=== PATIENT | female | born 1975 | race African-American/Black ===

== ENCOUNTER 2018-11-05 00:57 | Inpatient (IN) | payer MEDICAID ==
[~2018-11-05] VITALS: Ht 149.9 cm; Wt 108.4 kg
[2018-11-05] MEDS ORDERED: KETOROLAC 30MG/ML VIAL IV STA (08:41)
[2018-11-05] MEDS ORDERED: SODIUM CHLORIDE 0.9% 1,000 ML IV ONE (08:41)
[2018-11-05 08:55] LABS: BASOPHILS % 0.4 % (0.0-2.0); EOSINOPHILS % 2.3 % (0.0-5.0); HEMATOCRIT. 40.5 % (36.0-48.0); HEMOGLOBIN. 13.1 g/dL (12.0-16.0); LYMPHOCYTES % 22.4 % (20.0-50.0); MEAN CORPUSCULAR HEMOGLOBIN 26.7 pg (28.0-32.0); MEAN CORPUSCULAR VOLUME 82.6 fL (81.0-99.0); MEAN PLATELET VOLUME 9.1 fl (7.4-10.4); MONOCYTES % 6.6 % (2.0-8.0); NEUTROPHILS % 68.3 % (40.0-76.0); PLATELET 257 x1000/uL (130-400); RED CELL DISTRIBUTION WIDTH 17.9 % (11.6-14.6)
[2018-11-05 08:58] LABS: CHLORIDE 107 mEq/L (98-107)
[2018-11-05 09:00] LABS: INR 0.9; PROTHROMBIN TIME 9.5 sec (9.1-11.1)
[2018-11-05 09:08] LABS: HCG SCREEN NEGATIVE
[2018-11-05 09:49] LABS: CLARITY URINE CLOUDY (CLEAR); COLOR URINE YELLOW (YELLOW); KETONES URINE NEGATIVE (NEGATIVE); LEUKOCYTE ESTERASE URINE 1+ (NEGATIVE); NITRITE URINE POSITIVE (NEGATIVE); OCCULT BLOOD URINE NEGATIVE (NEGATIVE); PH URINE 7.5 (4.5-8.0); PROTEIN URINE NEGATIVE (NEGATIVE); SPECIFIC GRAVITY URINE 1.015 (1.005-1.030); UROBILINOGEN URINE 0.2 E.U./dL (0.2-1.0)
[2018-11-05 12:30] LABS: *BARBITURATES SCREEN URINE NEGATIVE (NEGATIVE); *BENZODIAZEPINES SCREEN URINE NEGATIVE (NEGATIVE); *COCAINE SCREEN URINE NEGATIVE (NEGATIVE)
[2018-11-05 12:31] LABS: CANNABINOID URINE SCREEN NEGATIVE (NEGATIVE); METHADONE URINE SCREEN NEGATIVE (NEGATIVE); OPIATES URINE SCREEN NEGATIVE (NEGATIVE); PHENCYCLIDINE URINE SCREEN NEGATIVE (NEGATIVE)
[2018-11-05 12:39] LABS: *AMPHETAMINES SCREEN URINE PRESUMTIVE POSITIVE (NEGATIVE)
[2018-11-05] MEDS ORDERED: PIPERACILLIN/TAZ 3.375G PREMIX 50 ML IV ONE (12:45)
[2018-11-05] MEDS ORDERED: VANCOMYCIN 1 G PREMIX 200 ML IV ONE (12:45)
[2018-11-05] MEDS ORDERED: MORPHINE SULFATE 4 MG/ML CPJ (NOT FOR IM USE) IV STA (12:47)
[2018-11-05] MEDS ORDERED: IBUPROFEN 600MG TABLET PO PRN (13:00)
[2018-11-05] MEDS ORDERED: MAGNESIUM/ALUMINUM HYDROXIDE/SIMETHICONE 30ML UDC PO PRN (14:45)
[2018-11-05] MEDS ORDERED: NA PHOS,M-B/NA PHOS,DI-BA ENEMA 118ML PR PRN (14:45)
[2018-11-05] MEDS ORDERED: ONDANSETRON HCL 4MG/2ML INJ IV PRN (14:45)
[2018-11-05] MEDS ORDERED: CLONIDINE 0.1MG TABLET PO PRN (14:45)
[2018-11-05] MEDS ORDERED: DOCUSATE SODIUM 100MG CAPSULE PO PRN (14:45)
[2018-11-05] MEDS ORDERED: ACETAMINOPHEN 325MG TABLET PO PRN (14:45)
[2018-11-05 17:45] VITALS: BP 134/52
[2018-11-05 18:02] VITALS: BP 134/52
[2018-11-05] MEDS: AMLODIPINE 10MG TABLET PO SCH (18:21)
[2018-11-05] MEDS ORDERED: VANCOMYCIN 1 G PREMIX 200 ML IV SCH (19:00)
[2018-11-05 20:00] VITALS: BP 128/57
[2018-11-05] MEDS: PIPERACILLIN/TAZ 3.375G PREMIX 50 ML IV SCH (20:04)
[2018-11-05] MEDS: SODIUM CHLORIDE 0.9% 1,000 ML IV SCH (20:05)
[2018-11-05] MEDS: ENOXAPARIN 40MG/0.4ML SYR SUBCUT SCH (20:10)
[2018-11-06] VITALS: BP 133/70
[2018-11-06] MEDS: HYDROCODONE/ACETAMINOPHEN 5/325MG TABLET PO PRN ×2 (00:54→09:03)
[2018-11-06] MEDS: PIPERACILLIN/TAZ 3.375G PREMIX 50 ML IV SCH ×4 (01:00→23:20)
[2018-11-06] MEDS: VANCOMYCIN 750 MG PREMIX 150 ML IV SCH ×3 (02:14→18:28)
[2018-11-06 04:00] VITALS: BP 122/61
[2018-11-06 06:56] LABS: BASOPHILS % 1.4 % (0.0-2.0); EOSINOPHILS % 1.6 % (0.0-5.0); HEMATOCRIT. 35.3 % (36.0-48.0); LYMPHOCYTES % 17.8 % (20.0-50.0); MEAN CORPUSCULAR HEMOGLOBIN 26.4 pg (28.0-32.0); MEAN PLATELET VOLUME 9.7 fl (7.4-10.4); MONOCYTES % 6.4 % (2.0-8.0); NEUTROPHILS % 72.8 % (40.0-76.0); PLATELET 171 x1000/uL (130-400); RED CELL DISTRIBUTION WIDTH 17.3 % (11.6-14.6)
[2018-11-06 07:02] LABS: CHLORIDE 109 mEq/L (98-107)
[2018-11-06 07:12] LABS: HEMOGLOBIN. 11.1 g/dL (12.0-16.0)
[2018-11-06 08:00] VITALS: BP 118/80
[2018-11-06] MEDS: AMLODIPINE 10MG TABLET PO SCH (09:00)
[2018-11-06] MEDS: ENOXAPARIN 40MG/0.4ML SYR SUBCUT SCH (09:02)
[2018-11-06 11:57] VITALS: BP 106/42
[2018-11-06] MEDS: HYDROCODONE/ACETAMINOPHEN 10/325MG TABLET PO PRN ×2 (12:27→21:03)
[2018-11-06 15:46] VITALS: BP 106/49
[2018-11-06] MEDS: SODIUM CHLORIDE 0.9% 1,000 ML IV SCH (17:12)
[2018-11-06 20:00] VITALS: BP 119/47
[2018-11-06] MEDS: ENOXAPARIN 30MG/0.3ML SYR SUBCUT SCH (21:03)
[2018-11-07] VITALS: BP 109/55
[2018-11-07] MEDS: VANCOMYCIN 750 MG PREMIX 150 ML IV SCH ×2 (03:09→10:41)
[2018-11-07] MEDS: PIPERACILLIN/TAZ 3.375G PREMIX 50 ML IV SCH ×2 (03:09→09:20)
[2018-11-07 04:00] VITALS: BP 150/70
[2018-11-07] MEDS: SODIUM CHLORIDE 0.9% 1,000 ML IV SCH (05:51)
[2018-11-07 08:00] VITALS: BP 121/55
[2018-11-07] MEDS: HYDROCODONE/ACETAMINOPHEN 10/325MG TABLET PO PRN (08:55)
[2018-11-07] MEDS: AMLODIPINE 10MG TABLET PO SCH (08:56)
[2018-11-07] MEDS: ENOXAPARIN 30MG/0.3ML SYR SUBCUT SCH (08:56)
[2018-11-07 10:20] LABS: CHLORIDE 107 mEq/L (98-107)
[2018-11-07 12:00] VITALS: BP 105/57
[2018-11-07 12:12] VITALS: BP 121/55
[2018-11-07] MEDS ORDERED: VANCOMYCIN 1 G PREMIX 200 ML IV SCH (21:00)
== END 2018-11-07 15:30 | disposition home or self-care (01) | DRG 813 ==
LOC: ER 00:57 → ENRESERV 14:47 → 6EST 17:07
PROVIDERS: ADMIT Hospitalist; ATTEND Hospitalist
DX: T81.31XA Disruption of external operation (surgical) wound, not elsewhere classified, initial encounter (principal); F20.9 Schizophrenia, unspecified; F12.90 Cannabis use, unspecified, uncomplicated; N39.0 Urinary tract infection, site not specified; F31.9 Bipolar disorder, unspecified; F17.200 Nicotine dependence, unspecified, uncomplicated; Y83.8 Other surgical procedures as the cause of abnormal reaction of the patient, or of later complication, without mention of misadventure at the time of the procedure; Y92.89 Other specified places as the place of occurrence of the external cause; Z98.891 History of uterine scar from previous surgery
CPT/HCPCS: 36415; 71045; 80048; 80202; 80305; 84703; 87070; 87077; 87186; 93005; 93970; 96365; 96375; 99285; J1650; J1885; J2270; J2543; J3370; J7030; A4315

== ENCOUNTER 2021-09-24 13:46 | Inpatient (IN) | payer MEDICAID ==
[~2021-09-24] VITALS: Ht 149.9 cm; Wt 114.8 kg
[2021-09-24] MEDS ORDERED: CEFTRIAXONE 1 G PREMIX 50 ML IV ONE (14:45)
[2021-09-24] MEDS ORDERED: LORAZEPAM 2MG/ML CPJ IM ONE (15:45)
[2021-09-24 15:53] LABS: HEMATOCRIT. 49.8 % (36.0-48.0); HEMOGLOBIN. 15.6 g/dL (12.0-16.0); MEAN CORPUSCULAR HEMOGLOBIN 25.3 pg (28.0-32.0); MEAN CORPUSCULAR VOLUME 80.9 fL (81.0-99.0); MEAN PLATELET VOLUME 9.2 fl (7.4-10.4); PLATELET 309 x1000/uL (130-400); RED BLOOD CELL COUNT 6.16 mill/uL (4.2-5.4); RED CELL DISTRIBUTION WIDTH 19.3 % (11.6-14.6)
[2021-09-24 15:57] LABS: CHLORIDE 107 mEq/L (98-107)
[2021-09-24 16:01] LABS: ETHANOL BLOOD < 10 mg/dL
[2021-09-24 16:51] LABS: PLATELET ESTIMATE NORMAL
[2021-09-24] MEDS ORDERED: SODIUM CHLORIDE 0.9% 1,000 ML IV ONE (18:00)
[2021-09-24] MEDS ORDERED: DEXTROSE 50% WATER 50ML SYRINGE IV ONE (18:15)
[2021-09-24] MEDS ORDERED: SODIUM CHLORIDE 0.9% 1000ML BAG (SEPSIS BOLUS) IV ONE (18:15)
[2021-09-24] MEDS ORDERED: VANCOMYCIN 1G PREMIX 200 ML IV ONE (18:45)
[2021-09-24] MEDS ORDERED: PIPERACILLIN/TAZ 3.375G PREMIX 50 ML IV ONE (18:45)
[2021-09-24 19:07] LABS: CLARITY URINE TURBID (CLEAR); COLOR URINE YELLOW (YELLOW); KETONES URINE NEGATIVE (NEGATIVE); LEUKOCYTE ESTERASE URINE 3+ (NEGATIVE); NITRITE URINE NEGATIVE (NEGATIVE); OCCULT BLOOD URINE 3+ (NEGATIVE); PH URINE 6.5 (4.5-8.0); PROTEIN URINE 3+ (NEGATIVE); SPECIFIC GRAVITY URINE 1.014 (1.005-1.030); UROBILINOGEN URINE 0.2 E.U./dL (0.2-1.0)
[2021-09-24] MEDS ORDERED: DEXT 5%/0.9% NACL 1,000 ML IV ONE (19:15)
[2021-09-24 19:21] LABS: *BARBITURATES SCREEN URINE NEGATIVE (NEGATIVE); *BENZODIAZEPINES SCREEN URINE NEGATIVE (NEGATIVE)
[2021-09-24 19:22] LABS: CANNABINOID URINE SCREEN NEGATIVE (NEGATIVE); METHADONE URINE SCREEN NEGATIVE (NEGATIVE); OPIATES URINE SCREEN NEGATIVE (NEGATIVE); PHENCYCLIDINE URINE SCREEN NEGATIVE (NEGATIVE)
[2021-09-24 19:26] LABS: *AMPHETAMINES SCREEN URINE PRESUMTIVE POSITIVE (NEGATIVE); *COCAINE SCREEN URINE PRESUMTIVE POSITIVE (NEGATIVE)
[2021-09-24] MEDS ORDERED: [UNRECOGNIZED DRUG - REMARK] XX SCH (19:30)
[2021-09-24] MEDS ORDERED: WATER IV SCH ×2 (20:00→21:30)
[2021-09-24] MEDS ORDERED: DEXT 5% IV SCH ×2 (20:00→21:30)
[2021-09-24] MEDS ORDERED: ACETYLCYSTEINE IV SCH ×2 (20:00→21:30)
[2021-09-24] MEDS: BLOOD SUGAR DIAGNOSTIC STRIP TEST SCH ×3 (20:30→22:55)
[2021-09-24] MEDS: DEXTROSE 50% WATER 50ML SYRINGE IV PRN (21:01)
[2021-09-24 21:48] LABS: INR 1.1; PROTHROMBIN TIME 12.1 sec (9.6-11.0)
[2021-09-24 22:28] LABS: CREATINE KINASE 169560 IU/L (26-192)
[2021-09-24] MEDS ORDERED: SODIUM POLYSTYRENE SULFONATE 15 G/60 ML BOT PO NR (22:30)
[2021-09-25] MEDS: BLOOD SUGAR DIAGNOSTIC STRIP TEST SCH ×25 (00:10→23:30)
[2021-09-25] MEDS ORDERED: ACETYLCYSTEINE IV SCH (01:00)
[2021-09-25] MEDS ORDERED: DEXTROSE 5% IV SCH (01:00)
[2021-09-25] MEDS ORDERED: WATER IV SCH (01:00)
[2021-09-25] MEDS: DEXTROSE 50% WATER 50ML SYRINGE IV PRN ×5 (04:15→15:35)
[2021-09-25] MEDS: PIPERACILLIN/TAZ 3.375G PREMIX 50 ML IV SCH ×2 (05:56→14:05)
[2021-09-25 09:18] LABS: CHLORIDE 103 mEq/L (98-107)
[2021-09-25] MEDS ORDERED: SODIUM BICARBONATE 5MEQ SYR 150 MEQ in DEXTROSE 5% WATER 1,000 ML IV ONE (12:00)
[2021-09-25] MEDS ORDERED: SODIUM POLYSTYRENE SULFONATE 15 G/60 ML BOT PO NR (12:08)
[2021-09-25 12:14] LABS: BG BASE EXCESS -9.9 mmol/L (-2.0-2.0); BG CARBOXYHEMOGLOBIN 0.4 % (0.5-1.5); BG DEOXYHEMOGLOBIN 3.2 % (0.0-5.0); BG HCO3 ACT 15.4 mmol/L (22.0-26.0); BG METHEMOGLOBIN 0.1 % (0.0-1.5); BG OXYGEN SATURATION 96.8 % (92.0-98.5); BG OXYHEMOGLOBIN 96.3 % (94.0-97.0); BG PCO2 32.6 mmHg (35.0-45.0); BG PH 7.293 (7.350-7.450); BG PO2 102.5 mmHg (75.0-100.0); BG SAMPLE SITE LEFT RADIAL; BG TOTAL HEMOGLOBIN 13.6 g/dL (12.0-18.0); BG VENT MODE ROOM AIR
[2021-09-25] MEDS: SODIUM BICARBONATE 150 MEQ in DEXTROSE 5% WATER 1,000 ML IV SCH (13:08)
[2021-09-25] MEDS ORDERED: AMLODIPINE 5MG TABLET PO SCH (14:15)
[2021-09-25] MEDS: CLONIDINE 0.1MG TABLET PO PRN ×2 (15:00→18:55)
[2021-09-25 16:12] LABS: INR 1.6; PROTHROMBIN TIME 16.5 sec (9.6-11.0)
[2021-09-25] MEDS ORDERED: CALCIUM GLUCONATE 100MG/ML 10ML VIAL IV NR (17:45)
[2021-09-25] MEDS ORDERED: NACL IV ONE (20:00)
[2021-09-25] MEDS ORDERED: DEXT IV ONE (20:00)
[2021-09-25] MEDS ORDERED: ACETYLCYSTEINE IV ONE (20:00)
[2021-09-25] MEDS: PIPERACILLIN/TAZOBACTAM 3.375G in DEXT 5% WATER 50ML IV SCH (22:00)
[2021-09-25] MEDS ORDERED: LABETALOL HCL VIAL 20 MG/4 ML VIAL IV PRN (23:45)
[2021-09-26] MEDS: SODIUM BICARBONATE 150 MEQ in DEXTROSE 5% WATER 1,000 ML IV SCH ×2
[2021-09-26] MEDS: BLOOD SUGAR DIAGNOSTIC STRIP TEST SCH ×22 (00:32→22:43)
[2021-09-26] MEDS: DEXTROSE 50% WATER 50ML SYRINGE IV PRN ×6 (00:33→22:42)
[2021-09-26 05:20] LABS: HEMATOCRIT. 41.2 % (36.0-48.0); HEMOGLOBIN. 13.6 g/dL (12.0-16.0); MEAN CORPUSCULAR HEMOGLOBIN 26.3 pg (28.0-32.0); MEAN CORPUSCULAR VOLUME 80.2 fL (81.0-99.0); MEAN PLATELET VOLUME 9.4 fl (7.4-10.4); PLATELET 195 x1000/uL (130-400); RED BLOOD CELL COUNT 5.15 mill/uL (4.2-5.4); RED CELL DISTRIBUTION WIDTH 19.3 % (11.6-14.6)
[2021-09-26 05:30] LABS: CHLORIDE 97 mEq/L (98-107)
[2021-09-26 05:57] LABS: HEPATITIS B SURFACE ANTIGEN NEGATIVE
[2021-09-26] MEDS: PIPERACILLIN/TAZOBACTAM 3.375G in DEXT 5% WATER 50ML IV SCH ×3 (06:39→22:00)
[2021-09-26] MEDS ORDERED: SODIUM POLYSTYRENE SULFONATE 15 G/60 ML BOT PO NR (09:30)
[2021-09-26] MEDS: SODIUM BICARBONATE 150 MEQ in DEXT 10% WATER 1,000 ML IV SCH ×2 (09:45→21:15)
[2021-09-26 10:10] LABS: INR 1.3; PROTHROMBIN TIME 13.5 sec (9.6-11.0)
[2021-09-26] MEDS: PANTOPRAZOLE SODIUM 40 MG/VIAL IV SCH (12:00)
[2021-09-26] MEDS: DEXT IV SCH (17:08)
[2021-09-26] MEDS: NACL IV SCH (17:08)
[2021-09-26] MEDS: ACETYLCYSTEINE IV SCH (17:08)
[2021-09-26] MEDS: LACTULOSE 20G/30ML UDC PO SCH (22:00)
[2021-09-27] MEDS: BLOOD SUGAR DIAGNOSTIC STRIP TEST SCH ×23 (00:03→23:15)
[2021-09-27] MEDS ORDERED: SODIUM BICARBONATE 8.4% 1 MEQ/ML 50ML SYR IV NR (02:00)
[2021-09-27 04:44] LABS: CREATINE KINASE 152125 IU/L (26-192)
[2021-09-27] MEDS: DEXTROSE 50% WATER 50ML SYRINGE IV PRN ×4 (04:45→23:22)
[2021-09-27 06:10] LABS: BASOPHILS % 0.1 % (0.0-2.0); HEMATOCRIT. 39.5 % (36.0-48.0); MEAN CORPUSCULAR HEMOGLOBIN 26.1 pg (28.0-32.0); MEAN CORPUSCULAR VOLUME 78.9 fL (81.0-99.0); MEAN PLATELET VOLUME 9.6 fl (7.4-10.4); MONOCYTES % 9.2 % (2.0-8.0); NEUTROPHILS % 81.7 % (40.0-76.0); PLATELET 190 x1000/uL (130-400); RED CELL DISTRIBUTION WIDTH 19.9 % (11.6-14.6)
[2021-09-27] MEDS: PIPERACILLIN/TAZOBACTAM 3.375G in DEXT 5% WATER 50ML IV SCH ×2 (06:18→14:18)
[2021-09-27 06:31] LABS: INR 1.2; PARTIAL THROMBOPLASTIN TIME 31.9 sec (23.4-31.0); PROTHROMBIN TIME 12.9 sec (9.6-11.0)
[2021-09-27 06:34] LABS: CHLORIDE 88 mEq/L (98-107)
[2021-09-27 06:36] LABS: PLATELET ESTIMATE NORMAL
[2021-09-27] MEDS: LACTULOSE 20G/30ML UDC PO SCH ×3 (06:50→23:15)
[2021-09-27 07:19] LABS: PHOSPHORUS 8.5 mg/dL (2.5-4.9)
[2021-09-27 08:06] LABS: BG BASE EXCESS 0.1 mmol/L (-2.0-2.0); BG CARBOXYHEMOGLOBIN 0.4 % (0.5-1.5); BG DEOXYHEMOGLOBIN 3.7 % (0.0-5.0); BG FRACTION INSPIRED OXYGEN 21; BG HCO3 ACT 24.1 mmol/L (22.0-26.0); BG METHEMOGLOBIN 0.3 % (0.0-1.5); BG OXYGEN SATURATION 96.3 % (92.0-98.5); BG OXYHEMOGLOBIN 95.6 % (94.0-97.0); BG PH 7.432 (7.350-7.450); BG PO2 89.9 mmHg (75.0-100.0); BG SAMPLE SITE RIGHT RADIAL; BG TOTAL HEMOGLOBIN 12.3 g/dL (12.0-18.0); BG VENT MODE ROOM AIR
[2021-09-27] MEDS: DEXT IV SCH (08:38)
[2021-09-27] MEDS: NACL IV SCH (08:38)
[2021-09-27] MEDS: ACETYLCYSTEINE IV SCH (08:38)
[2021-09-27] MEDS ORDERED: AMLODIPINE 10MG TABLET PO SCH (09:00)
[2021-09-27] MEDS: SODIUM BICARBONATE 150 MEQ in DEXT 10% WATER 1,000 ML IV SCH ×2 (09:36→23:15)
[2021-09-27] MEDS: AMLODIPINE 5MG TABLET PO SCH (09:36)
[2021-09-27] MEDS ORDERED: LIDOCAINE HCL 1% 20ML VIAL (Pyxis) INJ ONE (10:28)
[2021-09-27] MEDS: PANTOPRAZOLE SODIUM 40 MG/VIAL IV SCH (12:34)
[2021-09-28] MEDS: BLOOD SUGAR DIAGNOSTIC STRIP TEST SCH ×24 (01:22→23:21)
[2021-09-28] MEDS: LACTULOSE 20G/30ML UDC PO SCH ×3 (01:25→15:11)
[2021-09-28] MEDS: ACETYLCYSTEINE IV SCH ×3 (01:59→23:49)
[2021-09-28] MEDS: NACL IV SCH ×3 (01:59→23:49)
[2021-09-28] MEDS: DEXT IV SCH ×3 (01:59→23:49)
[2021-09-28] MEDS: DEXTROSE 50% WATER 50ML SYRINGE IV PRN ×3 (02:39→11:25)
[2021-09-28 08:23] LABS: BG BASE EXCESS 4.3 mmol/L (-2.0-2.0); BG CARBOXYHEMOGLOBIN 0.2 % (0.5-1.5); BG DEOXYHEMOGLOBIN 3.3 % (0.0-5.0); BG HCO3 ACT 28.6 mmol/L (22.0-26.0); BG METHEMOGLOBIN 0.3 % (0.0-1.5); BG OXYGEN SATURATION 96.7 % (92.0-98.5); BG OXYHEMOGLOBIN 96.2 % (94.0-97.0); BG PCO2 41.6 mmHg (35.0-45.0); BG PH 7.455 (7.350-7.450); BG PO2 94.9 mmHg (75.0-100.0); BG SAMPLE SITE RIGHT RADIAL; BG TOTAL HEMOGLOBIN 11.3 g/dL (12.0-18.0); BG VENT MODE NASAL CANNULA
[2021-09-28 09:48] LABS: HEMATOCRIT. 33.7 % (36.0-48.0); HEMOGLOBIN. 11.1 g/dL (12.0-16.0); MEAN CORPUSCULAR VOLUME 78.7 fL (81.0-99.0); MEAN PLATELET VOLUME 9.2 fl (7.4-10.4); PLATELET 234 x1000/uL (130-400); RED BLOOD CELL COUNT 4.28 mill/uL (4.2-5.4); RED CELL DISTRIBUTION WIDTH 19.2 % (11.6-14.6)
[2021-09-28 09:57] LABS: CHLORIDE 85 mEq/L (98-107)
[2021-09-28] MEDS: PIPERACILLIN/TAZOBACTAM 3.375G in DEXT 5% WATER 50ML IV SCH (10:00)
[2021-09-28 10:06] LABS: INR 1.2; PROTHROMBIN TIME 12.4 sec (9.6-11.0)
[2021-09-28 10:29] LABS: PHOSPHORUS 8.8 mg/dL (2.5-4.9)
[2021-09-28] MEDS: SODIUM CHLORIDE IV SCH (10:50)
[2021-09-28] MEDS: WATER IV SCH (10:50)
[2021-09-28] MEDS: DEXT 10% IV SCH (10:50)
[2021-09-28 11:01] LABS: PLATELET ESTIMATE NORMAL
[2021-09-28] MEDS: AMLODIPINE 5MG TABLET PO SCH (11:05)
[2021-09-28] MEDS: PANTOPRAZOLE SODIUM 40 MG/VIAL IV SCH (13:05)
[2021-09-28] MEDS ORDERED: ONDANSETRON HCL 4MG/2ML INJ IV PRN (15:30)
[2021-09-28 21:12] LABS: CREATINE KINASE 58550 IU/L (26-192)
[2021-09-29] VITALS (11 sets, daily range): BP systolic 136–171; BP diastolic 58–113
[2021-09-29] MEDS: BLOOD SUGAR DIAGNOSTIC STRIP TEST SCH ×9 (00:50→17:00)
[2021-09-29] MEDS ORDERED: BLOOD SUGAR DIAGNOSTIC STRIP TEST SCH ×2 (01:00→04:00)
[2021-09-29 01:09] LABS: INR 1.2; PROTHROMBIN TIME 12.6 sec (9.6-11.0)
[2021-09-29 01:21] LABS: CHLORIDE 88 mEq/L (98-107)
[2021-09-29] MEDS: PIPERACILLIN/TAZOBACTAM 3.375G in DEXT 5% WATER 50ML IV SCH ×3 (01:38→09:37)
[2021-09-29] MEDS: ONDANSETRON HCL 4MG/2ML INJ IV PRN ×2 (01:38→10:28)
[2021-09-29] MEDS: SODIUM CHLORIDE IV SCH ×3 (02:03→15:58)
[2021-09-29] MEDS: WATER IV SCH ×3 (02:03→15:58)
[2021-09-29] MEDS: DEXT 10% IV SCH ×3 (02:03→15:58)
[2021-09-29 03:03] LABS: CREATINE KINASE 77475 IU/L (26-192)
[2021-09-29] MEDS: LACTULOSE 20G/30ML UDC PO SCH ×3 (05:00→21:12)
[2021-09-29 05:26] LABS: CHLORIDE 89 mEq/L (98-107)
[2021-09-29 06:11] LABS: BASOPHILS % 0.1 % (0.0-2.0); EOSINOPHILS % 0.5 % (0.0-5.0); HEMATOCRIT. 33.3 % (36.0-48.0); HEMOGLOBIN. 11.2 g/dL (12.0-16.0); LYMPHOCYTES % 9.1 % (20.0-50.0); MEAN CORPUSCULAR HEMOGLOBIN 26.7 pg (28.0-32.0); MEAN CORPUSCULAR VOLUME 79.1 fL (81.0-99.0); MEAN PLATELET VOLUME 9.8 fl (7.4-10.4); MONOCYTES % 11.1 % (2.0-8.0); NEUTROPHILS % 79.2 % (40.0-76.0); PLATELET 195 x1000/uL (130-400); RED BLOOD CELL COUNT 4.21 mill/uL (4.2-5.4)
[2021-09-29] MEDS: LABETALOL 5MG/ML SYR 20 MG/4 ML SYRINGE IV PRN (06:24)
[2021-09-29 07:09] LABS: PHOSPHORUS 8.8 mg/dL (2.5-4.9)
[2021-09-29] MEDS: AMLODIPINE 5MG TABLET PO SCH (09:37)
[2021-09-29] MEDS: PANTOPRAZOLE SODIUM 40 MG/VIAL IV SCH (12:22)
[2021-09-29] MEDS: RIFAXIMIN 550 MG TABLET PO SCH (20:13)
[2021-09-29] MEDS: TRAMADOL 50MG TABLET PO PRN (20:17)
[2021-09-29] MEDS: CLONIDINE 0.1MG TABLET PO PRN (20:18)
[2021-09-29] MEDS: CEFTRIAXONE 1,000 MG in DEXTROSE 5% WATER 50 ML IV SCH (20:52)
[2021-09-30] VITALS (13 sets, daily range): BP systolic 119–169; BP diastolic 63–79
[2021-09-30] MEDS: ONDANSETRON HCL 4MG/2ML INJ IV PRN (00:21)
[2021-09-30] MEDS: LABETALOL 5MG/ML SYR 20 MG/4 ML SYRINGE IV PRN (00:22)
[2021-09-30] MEDS: DEXT 10% IV SCH (02:00)
[2021-09-30] MEDS: WATER IV SCH (02:00)
[2021-09-30] MEDS: SODIUM CHLORIDE IV SCH (02:00)
[2021-09-30] MEDS: LACTULOSE 20G/30ML UDC PO SCH ×3 (05:13→21:08)
[2021-09-30] MEDS: PROCHLORPERAZINE 10MG/2ML VIAL IV PRN (05:13)
[2021-09-30] MEDS: CLONIDINE 0.1MG TABLET PO PRN (05:18)
[2021-09-30 06:42] LABS: CHLORIDE 90 mEq/L (98-107)
[2021-09-30 06:47] LABS: INR 1.1; PROTHROMBIN TIME 11.9 sec (9.6-11.0)
[2021-09-30 07:19] LABS: MEAN CORPUSCULAR HEMOGLOBIN 26.4 pg (28.0-32.0); MEAN CORPUSCULAR VOLUME 78.9 fL (81.0-99.0); MEAN PLATELET VOLUME 9.7 fl (7.4-10.4); RED BLOOD CELL COUNT 4.18 mill/uL (4.2-5.4); RED CELL DISTRIBUTION WIDTH 19.3 % (11.6-14.6)
[2021-09-30 07:29] LABS: PHOSPHORUS 8.7 mg/dL (2.5-4.9)
[2021-09-30] MEDS: BLOOD SUGAR DIAGNOSTIC STRIP TEST SCH ×3 (08:00→23:19)
[2021-09-30] MEDS: AMLODIPINE 5MG TABLET PO SCH (09:41)
[2021-09-30] MEDS: RIFAXIMIN 550 MG TABLET PO SCH ×2 (09:41→20:27)
[2021-09-30] MEDS: DEXT 5%/0.9% NACL 1,000 ML IV SCH ×2 (11:08→19:52)
[2021-09-30] MEDS: PANTOPRAZOLE SODIUM 40 MG/VIAL IV SCH (15:03)
[2021-09-30] MEDS: CEFTRIAXONE 1,000 MG in DEXTROSE 5% WATER 50 ML IV SCH (20:27)
[2021-09-30] MEDS: TRAMADOL 50MG TABLET PO PRN (21:12)
[2021-09-30] MEDS ORDERED: NALOXONE HCL 0.4MG/ML VIAL IV PRN (22:30)
[2021-10-01] VITALS (12 sets, daily range): BP systolic 115–166; BP diastolic 60–84
[2021-10-01] MEDS: BLOOD SUGAR DIAGNOSTIC STRIP TEST SCH ×9 (03:00→20:00)
[2021-10-01] MEDS: LACTULOSE 20G/30ML UDC PO SCH ×3 (05:01→21:16)
[2021-10-01] MEDS: DEXT 5%/0.9% NACL 1,000 ML IV SCH (05:19)
[2021-10-01 08:40] LABS: HEMATOCRIT. 30.6 % (36.0-48.0); HEMOGLOBIN. 9.9 g/dL (12.0-16.0); MEAN CORPUSCULAR HEMOGLOBIN 26.2 pg (28.0-32.0); MEAN PLATELET VOLUME 9.2 fl (7.4-10.4); PLATELET 195 x1000/uL (130-400); RED BLOOD CELL COUNT 3.78 mill/uL (4.2-5.4); RED CELL DISTRIBUTION WIDTH 18.5 % (11.6-14.6)
[2021-10-01 08:47] LABS: PLATELET ESTIMATE NORMAL
[2021-10-01 08:49] LABS: PLATELET 239 x1000/uL (130-400)
[2021-10-01 08:53] LABS: BG BASE EXCESS 0.8 mmol/L (-2.0-2.0); BG CARBOXYHEMOGLOBIN 0.3 % (0.5-1.5); BG DEOXYHEMOGLOBIN 2.9 % (0.0-5.0); BG FRACTION INSPIRED OXYGEN 32; BG HCO3 ACT 25.9 mmol/L (22.0-26.0); BG METHEMOGLOBIN 0.6 % (0.0-1.5); BG OXYGEN SATURATION 97.1 % (92.0-98.5); BG OXYHEMOGLOBIN 96.2 % (94.0-97.0); BG PCO2 43.8 mmHg (35.0-45.0); BG PO2 106.8 mmHg (75.0-100.0); BG SAMPLE SITE RIGHT RADIAL; BG TOTAL HEMOGLOBIN 10.1 g/dL (12.0-18.0); BG VENT MODE NASAL CANNULA
[2021-10-01] MEDS ORDERED: POTASSIUM CHLORIDE 20MEQ TABLET SR PO SCH (09:45)
[2021-10-01] MEDS: PROCHLORPERAZINE 10MG/2ML VIAL IV PRN (10:21)
[2021-10-01] MEDS: RIFAXIMIN 550 MG TABLET PO SCH ×2 (10:21→21:15)
[2021-10-01] MEDS: AMLODIPINE 5MG TABLET PO SCH (10:21)
[2021-10-01] MEDS: PANTOPRAZOLE SODIUM 40 MG/VIAL IV SCH (11:25)
[2021-10-01 14:02] LABS: PLATELET ESTIMATE NORMAL
[2021-10-02] VITALS (12 sets, daily range): BP systolic 123–160; BP diastolic 46–89
[2021-10-02] MEDS: BLOOD SUGAR DIAGNOSTIC STRIP TEST SCH ×6 (00:53→20:52)
[2021-10-02] MEDS: TRAMADOL 50MG TABLET PO PRN ×3 (02:18→22:02)
[2021-10-02] MEDS: LACTULOSE 20G/30ML UDC PO SCH ×3 (06:00→21:04)
[2021-10-02 08:10] LABS: HEMATOCRIT. 26.5 % (36.0-48.0); HEMOGLOBIN. 8.6 g/dL (12.0-16.0); MEAN CORPUSCULAR HEMOGLOBIN 25.9 pg (28.0-32.0); MEAN CORPUSCULAR VOLUME 79.9 fL (81.0-99.0); MEAN PLATELET VOLUME 8.5 fl (7.4-10.4); PLATELET 191 x1000/uL (130-400); RED BLOOD CELL COUNT 3.31 mill/uL (4.2-5.4); RED CELL DISTRIBUTION WIDTH 18.4 % (11.6-14.6)
[2021-10-02 08:17] LABS: CHLORIDE 103 mEq/L (98-107)
[2021-10-02 08:25] LABS: PHOSPHORUS 7.6 mg/dL (2.5-4.9)
[2021-10-02] MEDS: RIFAXIMIN 550 MG TABLET PO SCH ×2 (08:56→21:04)
[2021-10-02] MEDS: AMLODIPINE 5MG TABLET PO SCH (08:56)
[2021-10-02] MEDS ORDERED: POTASSIUM CHLORIDE 20MEQ TABLET SR PO NR (11:30)
[2021-10-02] MEDS: ONDANSETRON HCL 4MG/2ML INJ IV PRN (12:01)
[2021-10-02] MEDS: PANTOPRAZOLE SODIUM 40 MG/VIAL IV SCH (12:01)
[2021-10-02 16:45] LABS: PLATELET ESTIMATE NORMAL
[2021-10-02] MEDS: HEPARIN 5000 UNITS/ML VIAL SUBCUT SCH (21:04)
[2021-10-03] VITALS (12 sets, daily range): BP systolic 106–153; BP diastolic 45–74
[2021-10-03] MEDS: BLOOD SUGAR DIAGNOSTIC STRIP TEST SCH ×6 (00:43→19:44)
[2021-10-03] MEDS: ONDANSETRON HCL 4MG/2ML INJ IV PRN (04:05)
[2021-10-03] MEDS: LACTULOSE 20G/30ML UDC PO SCH ×3 (06:00→21:35)
[2021-10-03] MEDS: HEPARIN 5000 UNITS/ML VIAL SUBCUT SCH ×3 (06:00→21:35)
[2021-10-03 06:04] LABS: HEMATOCRIT. 24.8 % (36.0-48.0); HEMOGLOBIN. 8.2 g/dL (12.0-16.0); MEAN CORPUSCULAR HEMOGLOBIN 26.5 pg (28.0-32.0); MEAN CORPUSCULAR VOLUME 80.4 fL (81.0-99.0); MEAN PLATELET VOLUME 8.8 fl (7.4-10.4); PLATELET 186 x1000/uL (130-400); RED BLOOD CELL COUNT 3.08 mill/uL (4.2-5.4); RED CELL DISTRIBUTION WIDTH 18.3 % (11.6-14.6)
[2021-10-03 06:47] LABS: CHLORIDE 101 mEq/L (98-107)
[2021-10-03 06:52] LABS: PHOSPHORUS 5.3 mg/dL (2.5-4.9)
[2021-10-03] MEDS: AMLODIPINE 5MG TABLET PO SCH (08:42)
[2021-10-03] MEDS: RIFAXIMIN 550 MG TABLET PO SCH ×2 (08:42→21:36)
[2021-10-03] MEDS: LIDOCAINE 5% PATCH TOP SCH (13:29)
[2021-10-03] MEDS: PANTOPRAZOLE SODIUM 40 MG/VIAL IV SCH (13:34)
[2021-10-03 15:15] LABS: PLATELET ESTIMATE NORMAL
[2021-10-03] MEDS: TRAMADOL 50MG TABLET PO PRN (21:36)
[2021-10-04] VITALS (12 sets, daily range): BP systolic 112–147; BP diastolic 47–74
[2021-10-04] MEDS: BLOOD SUGAR DIAGNOSTIC STRIP TEST SCH ×6 (00:59→20:05)
[2021-10-04] MEDS: LACTULOSE 20G/30ML UDC PO SCH ×3 (05:40→21:55)
[2021-10-04] MEDS: HEPARIN 5000 UNITS/ML VIAL SUBCUT SCH ×3 (05:40→21:55)
[2021-10-04 06:41] LABS: INR 1.1; PROTHROMBIN TIME 11.9 sec (9.6-11.0)
[2021-10-04 07:01] LABS: HEMATOCRIT. 23.9 % (36.0-48.0); HEMOGLOBIN. 7.9 g/dL (12.0-16.0); MEAN CORPUSCULAR HEMOGLOBIN 26.4 pg (28.0-32.0); MEAN CORPUSCULAR VOLUME 80.2 fL (81.0-99.0); MEAN PLATELET VOLUME 8.8 fl (7.4-10.4); PLATELET 217 x1000/uL (130-400); RED BLOOD CELL COUNT 2.98 mill/uL (4.2-5.4); RED CELL DISTRIBUTION WIDTH 17.8 % (11.6-14.6)
[2021-10-04] MEDS: RIFAXIMIN 550 MG TABLET PO SCH ×2 (08:00→21:55)
[2021-10-04] MEDS: AMLODIPINE 5MG TABLET PO SCH (08:01)
[2021-10-04] MEDS: LIDOCAINE 5% PATCH TOP SCH (08:01)
[2021-10-04] MEDS: PANTOPRAZOLE SODIUM 40 MG/VIAL IV SCH (12:43)
[2021-10-04 15:24] LABS: CREATINE KINASE 2269 IU/L (26-192)
[2021-10-04 16:49] LABS: UCG SCREEN NEGATIVE
[2021-10-04 19:12] LABS: PLATELET ESTIMATE NORMAL
[2021-10-05] VITALS (17 sets, daily range): BP systolic 118–173; BP diastolic 51–90
[2021-10-05] MEDS: BLOOD SUGAR DIAGNOSTIC STRIP TEST SCH ×6 (00:11→20:00)
[2021-10-05] MEDS: TRAMADOL 50MG TABLET PO PRN ×2 (01:19→05:24)
[2021-10-05] MEDS: LACTULOSE 20G/30ML UDC PO SCH ×3 (05:24→21:42)
[2021-10-05] MEDS: HEPARIN 5000 UNITS/ML VIAL SUBCUT SCH ×3 (05:25→21:42)
[2021-10-05 05:47] LABS: PHOSPHORUS 5.5 mg/dL (2.5-4.9)
[2021-10-05 07:42] LABS: MEAN CORPUSCULAR HEMOGLOBIN 25.9 pg (28.0-32.0); MEAN CORPUSCULAR VOLUME 79.9 fL (81.0-99.0); MEAN PLATELET VOLUME 8.9 fl (7.4-10.4); PLATELET 215 x1000/uL (130-400); RED BLOOD CELL COUNT 2.62 mill/uL (4.2-5.4); RED CELL DISTRIBUTION WIDTH 17.7 % (11.6-14.6)
[2021-10-05 08:42] LABS: HEMOGLOBIN. 6.8 g/dL (12.0-16.0)
[2021-10-05 08:43] LABS: HEMATOCRIT. 20.9 % (36.0-48.0)
[2021-10-05] MEDS: LIDOCAINE 5% PATCH TOP SCH (09:00)
[2021-10-05] MEDS: AMLODIPINE 5MG TABLET PO SCH (09:00)
[2021-10-05] MEDS: PANTOPRAZOLE SODIUM 40 MG/VIAL IV SCH (12:00)
[2021-10-05 17:59] LABS: PLATELET ESTIMATE NORMAL
[2021-10-06] VITALS (18 sets, daily range): BP systolic 107–154; BP diastolic 44–75
[2021-10-06] MEDS: BLOOD SUGAR DIAGNOSTIC STRIP TEST SCH ×7 (04:00→23:56)
[2021-10-06] MEDS: LACTULOSE 20G/30ML UDC PO SCH ×3 (05:32→21:48)
[2021-10-06] MEDS: HEPARIN 5000 UNITS/ML VIAL SUBCUT SCH ×3 (05:33→21:48)
[2021-10-06 05:36] LABS: PHOSPHORUS 6.3 mg/dL (2.5-4.9)
[2021-10-06 06:05] LABS: HEMATOCRIT. 29.7 % (36.0-48.0); HEMOGLOBIN. 10.1 g/dL (12.0-16.0); MEAN CORPUSCULAR HEMOGLOBIN 27.6 pg (28.0-32.0); MEAN CORPUSCULAR VOLUME 80.9 fL (81.0-99.0); MEAN PLATELET VOLUME 8.7 fl (7.4-10.4); PLATELET 261 x1000/uL (130-400); RED BLOOD CELL COUNT 3.67 mill/uL (4.2-5.4); RED CELL DISTRIBUTION WIDTH 16.8 % (11.6-14.6)
[2021-10-06] MEDS: DOXYCYCLINE 100 MG in DEXT 5% WATER 100 ML IV SCH ×2 (09:00→21:38)
[2021-10-06] MEDS: LIDOCAINE 5% PATCH TOP SCH (09:31)
[2021-10-06] MEDS: AMLODIPINE 5MG TABLET PO SCH (09:32)
[2021-10-06] MEDS: PANTOPRAZOLE SODIUM 40 MG/VIAL IV SCH (12:19)
[2021-10-06 16:36] LABS: PLATELET ESTIMATE NORMAL
[2021-10-06] MEDS: DEXT 5%/0.9% NACL 1,000 ML IV SCH (21:38)
[2021-10-07] VITALS (19 sets, daily range): BP systolic 109–147; BP diastolic 50–84
[2021-10-07] MEDS: BLOOD SUGAR DIAGNOSTIC STRIP TEST SCH ×6 (04:58→23:59)
[2021-10-07] MEDS: HEPARIN 5000 UNITS/ML VIAL SUBCUT SCH ×3 (06:47→21:00)
[2021-10-07] MEDS: LACTULOSE 20G/30ML UDC PO SCH ×2 (06:47→14:00)
[2021-10-07 06:54] LABS: HEMATOCRIT. 28.1 % (36.0-48.0); HEMOGLOBIN. 9.5 g/dL (12.0-16.0); MEAN CORPUSCULAR HEMOGLOBIN 27.3 pg (28.0-32.0); MEAN CORPUSCULAR VOLUME 80.7 fL (81.0-99.0); MEAN PLATELET VOLUME 8.5 fl (7.4-10.4); PLATELET 252 x1000/uL (130-400); RED BLOOD CELL COUNT 3.49 mill/uL (4.2-5.4)
[2021-10-07 06:57] LABS: PHOSPHORUS 6.6 mg/dL (2.5-4.9)
[2021-10-07] MEDS: LIDOCAINE 5% PATCH TOP SCH (09:00)
[2021-10-07] MEDS: DOXYCYCLINE 100 MG in DEXT 5% WATER 100 ML IV SCH ×2 (09:13→20:51)
[2021-10-07] MEDS: AMLODIPINE 5MG TABLET PO SCH (09:15)
[2021-10-07 11:24] LABS: PLATELET ESTIMATE NORMAL
[2021-10-07] MEDS: PANTOPRAZOLE SODIUM 40 MG/VIAL IV SCH (11:35)
[2021-10-07] MEDS ORDERED: DIATR MEGLU/DIATRIZOATE SOLN 120ML ONE (13:43)
[2021-10-07] MEDS: DEXT 5%/0.9% NACL 1,000 ML IV SCH (16:54)
[2021-10-07] MEDS: DEXTROSE 50% WATER 50ML SYRINGE IV PRN (16:54)
[2021-10-07] MEDS ORDERED: HALOPERIDOL LACTATE 5MG/ML VIAL IM NR (20:15)
[2021-10-07] MEDS: RISPERIDONE 0.25MG TABLET PO SCH (20:51)
[2021-10-08] VITALS (12 sets, daily range): BP systolic 113–149; BP diastolic 54–85
[2021-10-08] MEDS: BLOOD SUGAR DIAGNOSTIC STRIP TEST SCH ×5 (03:41→20:00)
[2021-10-08] MEDS: ONDANSETRON HCL 4MG/2ML INJ IV PRN ×2 (05:17→21:49)
[2021-10-08] MEDS: HEPARIN 5000 UNITS/ML VIAL SUBCUT SCH ×3 (05:17→21:50)
[2021-10-08 06:23] LABS: HEMATOCRIT. 26.7 % (36.0-48.0); HEMOGLOBIN. 9.1 g/dL (12.0-16.0); MEAN CORPUSCULAR HEMOGLOBIN 27.6 pg (28.0-32.0); MEAN CORPUSCULAR VOLUME 81.2 fL (81.0-99.0); MEAN PLATELET VOLUME 8.7 fl (7.4-10.4); PLATELET 274 x1000/uL (130-400); RED BLOOD CELL COUNT 3.29 mill/uL (4.2-5.4); RED CELL DISTRIBUTION WIDTH 17.1 % (11.6-14.6)
[2021-10-08 06:31] LABS: PHOSPHORUS 4.6 mg/dL (2.5-4.9)
[2021-10-08] MEDS: LIDOCAINE 5% PATCH TOP SCH ×2 (09:00→10:24)
[2021-10-08] MEDS: DOXYCYCLINE 100 MG in DEXT 5% WATER 100 ML IV SCH ×2 (10:23→21:49)
[2021-10-08] MEDS: RISPERIDONE 0.25MG TABLET PO SCH (10:24)
[2021-10-08] MEDS: AMLODIPINE 5MG TABLET PO SCH (10:24)
[2021-10-08] MEDS: PANTOPRAZOLE SODIUM 40 MG/VIAL IV SCH (10:24)
[2021-10-08 11:12] LABS: PLATELET ESTIMATE NORMAL
[2021-10-09] VITALS (8 sets, daily range): BP systolic 109–149; BP diastolic 43–79
[2021-10-09] MEDS: BLOOD SUGAR DIAGNOSTIC STRIP TEST SCH ×6 (04:00→20:34)
[2021-10-09] MEDS: DEXTROSE 50% WATER 50ML SYRINGE IV PRN (04:10)
[2021-10-09] MEDS: HEPARIN 5000 UNITS/ML VIAL SUBCUT SCH ×3 (05:15→22:33)
[2021-10-09] MEDS: DOXYCYCLINE 100 MG in DEXT 5% WATER 100 ML IV SCH ×2 (08:36→22:33)
[2021-10-09] MEDS: RISPERIDONE 0.25MG TABLET PO SCH (08:37)
[2021-10-09] MEDS: LIDOCAINE 5% PATCH TOP SCH (08:37)
[2021-10-09] MEDS: AMLODIPINE 5MG TABLET PO SCH (08:38)
[2021-10-09] MEDS: PANTOPRAZOLE SODIUM 40 MG/VIAL IV SCH (12:40)
[2021-10-10] VITALS (7 sets, daily range): BP systolic 120–153; BP diastolic 47–72
[2021-10-10] MEDS: BLOOD SUGAR DIAGNOSTIC STRIP TEST SCH ×7 (04:00→23:35)
[2021-10-10] MEDS: HEPARIN 5000 UNITS/ML VIAL SUBCUT SCH ×3 (05:59→20:51)
[2021-10-10 06:26] LABS: CHLORIDE 103 mEq/L (98-107)
[2021-10-10 06:36] LABS: PHOSPHORUS 7.3 mg/dL (2.5-4.9)
[2021-10-10 06:39] LABS: BASOPHILS % 0.6 % (0.0-2.0); EOSINOPHILS % 0.7 % (0.0-5.0); HEMATOCRIT. 26.2 % (36.0-48.0); HEMOGLOBIN. 8.6 g/dL (12.0-16.0); LYMPHOCYTES % 9.6 % (20.0-50.0); MEAN CORPUSCULAR VOLUME 82.7 fL (81.0-99.0); MEAN PLATELET VOLUME 8.6 fl (7.4-10.4); MONOCYTES % 8.6 % (2.0-8.0); NEUTROPHILS % 80.5 % (40.0-76.0); PLATELET 344 x1000/uL (130-400); RED BLOOD CELL COUNT 3.17 mill/uL (4.2-5.4); RED CELL DISTRIBUTION WIDTH 16.8 % (11.6-14.6)
[2021-10-10] MEDS: DOXYCYCLINE 100 MG in DEXT 5% WATER 100 ML IV SCH ×3 (08:29→20:52)
[2021-10-10] MEDS: AMLODIPINE 5MG TABLET PO SCH (08:29)
[2021-10-10] MEDS: LIDOCAINE 5% PATCH TOP SCH (08:29)
[2021-10-10] MEDS: RISPERIDONE 0.25MG TABLET PO SCH ×2 (08:29→10:39)
[2021-10-10] MEDS: PANTOPRAZOLE SODIUM 40 MG/VIAL IV SCH (12:16)
[2021-10-10] MEDS ORDERED: MAGNESIUM 2 G PREMIX 50 ML IV NR (14:00)
[2021-10-10] MEDS: MUPIROCIN 2% OINT 22GM NS SCH (20:51)
[2021-10-10] MEDS ORDERED: LORAZEPAM 2MG/ML CPJ IV PRN (23:45)
[2021-10-10] MEDS: RISPERIDONE 1MG TABLET PO SCH (23:52)
[2021-10-11] VITALS: BP 115/64
[2021-10-11] MEDS: BLOOD SUGAR DIAGNOSTIC STRIP TEST SCH ×5 (00:07→20:00)
[2021-10-11 04:00] VITALS: BP 130/53
[2021-10-11] MEDS: TRAMADOL 50MG TABLET PO PRN ×2 (04:03→23:28)
[2021-10-11] MEDS: HEPARIN 5000 UNITS/ML VIAL SUBCUT SCH ×3 (05:30→21:46)
[2021-10-11 06:36] LABS: CHLORIDE 104 mEq/L (98-107)
[2021-10-11 06:45] LABS: PHOSPHORUS 7.3 mg/dL (2.5-4.9)
[2021-10-11 08:00] VITALS: BP 118/60
[2021-10-11] MEDS: MUPIROCIN 2% OINT 22GM NS SCH ×2 (08:58→21:46)
[2021-10-11] MEDS: DOXYCYCLINE 100 MG in DEXT 5% WATER 100 ML IV SCH (08:58)
[2021-10-11] MEDS: AMLODIPINE 5MG TABLET PO SCH (08:59)
[2021-10-11] MEDS: RISPERIDONE 1MG TABLET PO SCH ×2 (08:59→21:46)
[2021-10-11] MEDS: LIDOCAINE 5% PATCH TOP SCH (08:59)
[2021-10-11 12:00] VITALS: BP 124/53
[2021-10-11] MEDS: PANTOPRAZOLE SODIUM 40 MG/VIAL IV SCH (12:00)
[2021-10-11] MEDS ORDERED: SODIUM POLYSTYRENE SULFONATE 15 G/60 ML BOT PO NR (12:30)
[2021-10-11 16:00] VITALS: BP 112/68
[2021-10-11 20:00] VITALS: BP 114/66
[2021-10-12] VITALS: BP 121/58
[2021-10-12 04:00] VITALS: BP 119/60
[2021-10-12] MEDS: BLOOD SUGAR DIAGNOSTIC STRIP TEST SCH ×6 (04:00→20:28)
[2021-10-12] MEDS: HEPARIN 5000 UNITS/ML VIAL SUBCUT SCH ×3 (06:00→21:47)
[2021-10-12 08:00] VITALS: BP 107/68
[2021-10-12] MEDS: AMLODIPINE 5MG TABLET PO SCH (08:39)
[2021-10-12] MEDS: RISPERIDONE 1MG TABLET PO SCH ×2 (08:40→21:46)
[2021-10-12] MEDS: LIDOCAINE 5% PATCH TOP SCH (08:40)
[2021-10-12 10:30] LABS: BASOPHILS % 0.3 % (0.0-2.0); EOSINOPHILS % 0.8 % (0.0-5.0); HEMATOCRIT. 25.4 % (36.0-48.0); HEMOGLOBIN. 8.6 g/dL (12.0-16.0); LYMPHOCYTES % 7.7 % (20.0-50.0); MEAN CORPUSCULAR HEMOGLOBIN 27.8 pg (28.0-32.0); MEAN CORPUSCULAR VOLUME 82.1 fL (81.0-99.0); MEAN PLATELET VOLUME 8.2 fl (7.4-10.4); MONOCYTES % 7.4 % (2.0-8.0); NEUTROPHILS % 83.8 % (40.0-76.0); PLATELET 376 x1000/uL (130-400); RED CELL DISTRIBUTION WIDTH 17.3 % (11.6-14.6)
[2021-10-12 10:34] LABS: CHLORIDE 104 mEq/L (98-107)
[2021-10-12 10:39] LABS: PHOSPHORUS 4.5 mg/dL (2.5-4.9)
[2021-10-12] MEDS: MUPIROCIN 2% OINT 22GM NS SCH ×2 (11:19→21:46)
[2021-10-12] MEDS: PANTOPRAZOLE SODIUM 40 MG/VIAL IV SCH (11:19)
[2021-10-12 12:00] VITALS: BP 113/58
[2021-10-12 15:51] VITALS: BP 110/62
[2021-10-12] MEDS: TRAMADOL 50MG TABLET PO PRN (16:44)
[2021-10-12 20:00] VITALS: BP 102/25
[2021-10-13] VITALS: BP 109/54
[2021-10-13] MEDS: BLOOD SUGAR DIAGNOSTIC STRIP TEST SCH ×6 (00:19→20:00)
[2021-10-13 04:00] VITALS: BP 86/45
[2021-10-13] MEDS: TRAMADOL 50MG TABLET PO PRN ×2 (05:07→18:32)
[2021-10-13] MEDS: HEPARIN 5000 UNITS/ML VIAL SUBCUT SCH ×3 (05:08→21:46)
[2021-10-13 07:43] VITALS: BP 97/48
[2021-10-13] MEDS: MUPIROCIN 2% OINT 22GM NS SCH ×2 (08:13→21:46)
[2021-10-13] MEDS: RISPERIDONE 1MG TABLET PO SCH ×2 (08:13→21:46)
[2021-10-13] MEDS: LIDOCAINE 5% PATCH TOP SCH (08:13)
[2021-10-13] MEDS: AMLODIPINE 5MG TABLET PO SCH (08:13)
[2021-10-13 10:26] LABS: BASOPHILS % 0.5 % (0.0-2.0); EOSINOPHILS % 1.2 % (0.0-5.0); HEMATOCRIT. 24.4 % (36.0-48.0); HEMOGLOBIN. 8.1 g/dL (12.0-16.0); MEAN CORPUSCULAR HEMOGLOBIN 27.4 pg (28.0-32.0); MEAN CORPUSCULAR VOLUME 82.7 fL (81.0-99.0); MEAN PLATELET VOLUME 8.2 fl (7.4-10.4); MONOCYTES % 10.4 % (2.0-8.0); NEUTROPHILS % 76.9 % (40.0-76.0); PLATELET 365 x1000/uL (130-400); RED BLOOD CELL COUNT 2.95 mill/uL (4.2-5.4)
[2021-10-13 12:00] VITALS: BP 114/57
[2021-10-13 12:13] LABS: PHOSPHORUS 7.6 mg/dL (2.5-4.9)
[2021-10-13] MEDS: PANTOPRAZOLE SODIUM 40 MG/VIAL IV SCH (13:19)
[2021-10-13 16:00] VITALS: BP 121/74
[2021-10-13 20:00] VITALS: BP 107/54
[2021-10-14] VITALS: BP 102/47
[2021-10-14 04:00] VITALS: BP 103/52
[2021-10-14] MEDS: BLOOD SUGAR DIAGNOSTIC STRIP TEST SCH ×6 (04:50→20:00)
[2021-10-14 06:29] LABS: BASOPHILS % 0.3 % (0.0-2.0); HEMATOCRIT. 23.1 % (36.0-48.0); HEMOGLOBIN. 7.8 g/dL (12.0-16.0); LYMPHOCYTES % 10.3 % (20.0-50.0); MEAN CORPUSCULAR HEMOGLOBIN 28.1 pg (28.0-32.0); MEAN CORPUSCULAR VOLUME 82.5 fL (81.0-99.0); MEAN PLATELET VOLUME 8.3 fl (7.4-10.4); MONOCYTES % 8.9 % (2.0-8.0); NEUTROPHILS % 79.5 % (40.0-76.0); PLATELET 345 x1000/uL (130-400)
[2021-10-14 06:30] LABS: CHLORIDE 100 mEq/L (98-107)
[2021-10-14] MEDS: HEPARIN 5000 UNITS/ML VIAL SUBCUT SCH ×3 (06:33→21:16)
[2021-10-14 06:41] LABS: PHOSPHORUS 7.9 mg/dL (2.5-4.9)
[2021-10-14 08:00] VITALS: BP 105/65
[2021-10-14] MEDS: MUPIROCIN 2% OINT 22GM NS SCH ×2 (08:16→21:00)
[2021-10-14] MEDS: AMLODIPINE 5MG TABLET PO SCH (08:16)
[2021-10-14] MEDS: RISPERIDONE 1MG TABLET PO SCH ×2 (08:16→21:16)
[2021-10-14] MEDS: LIDOCAINE 5% PATCH TOP SCH (08:17)
[2021-10-14] MEDS ORDERED: SODIUM POLYSTYRENE SULFONATE 15 G/60 ML BOT PO NR (10:00)
[2021-10-14] MEDS: PANTOPRAZOLE SODIUM 40 MG/VIAL IV SCH (11:00)
[2021-10-14 11:48] VITALS: BP 122/60
[2021-10-14 16:00] VITALS: BP 112/56
[2021-10-14 20:00] VITALS: BP 112/51
[2021-10-15] VITALS: BP 115/48
[2021-10-15] MEDS: BLOOD SUGAR DIAGNOSTIC STRIP TEST SCH ×6 (00:30→20:49)
[2021-10-15] MEDS: HEPARIN 5000 UNITS/ML VIAL SUBCUT SCH ×3 (06:02→22:21)
[2021-10-15 08:23] VITALS: BP 93/64
[2021-10-15] MEDS: MUPIROCIN 2% OINT 22GM NS SCH ×2 (09:11→22:24)
[2021-10-15] MEDS: LIDOCAINE 5% PATCH TOP SCH (09:12)
[2021-10-15] MEDS: RISPERIDONE 1MG TABLET PO SCH ×2 (09:13→22:21)
[2021-10-15] MEDS: AMLODIPINE 5MG TABLET PO SCH (09:13)
[2021-10-15 09:45] VITALS: BP 120/58
[2021-10-15 11:45] VITALS: BP 111/50
[2021-10-15] MEDS: PANTOPRAZOLE SODIUM 40 MG/VIAL IV SCH (13:51)
[2021-10-15 16:00] VITALS: BP 115/55
[2021-10-15] MEDS ORDERED: ACETAMINOPHEN 500MG TABLET PO PRN (18:00)
[2021-10-15 18:14] LABS: BASOPHILS % 0.2 % (0.0-2.0); EOSINOPHILS % 1.4 % (0.0-5.0); HEMATOCRIT. 25.7 % (36.0-48.0); HEMOGLOBIN. 8.2 g/dL (12.0-16.0); LYMPHOCYTES % 9.3 % (20.0-50.0); MEAN CORPUSCULAR HEMOGLOBIN 26.7 pg (28.0-32.0); MEAN PLATELET VOLUME 8.5 fl (7.4-10.4); MONOCYTES % 10.5 % (2.0-8.0); NEUTROPHILS % 78.6 % (40.0-76.0); PLATELET 374 x1000/uL (130-400); RED BLOOD CELL COUNT 3.06 mill/uL (4.2-5.4); RED CELL DISTRIBUTION WIDTH 17.1 % (11.6-14.6)
[2021-10-15 18:25] LABS: CHLORIDE 100 mEq/L (98-107)
[2021-10-15 19:15] LABS: PHOSPHORUS 8.2 mg/dL (2.5-4.9)
[2021-10-15 20:00] VITALS: BP 88/48
[2021-10-16] VITALS (13 sets, daily range): BP systolic 90–134; BP diastolic 38–83
[2021-10-16] MEDS: BLOOD SUGAR DIAGNOSTIC STRIP TEST SCH ×7 (00:26→23:40)
[2021-10-16] MEDS: TRAMADOL 50MG TABLET PO PRN (01:33)
[2021-10-16] MEDS: HEPARIN 5000 UNITS/ML VIAL SUBCUT SCH ×3 (06:02→21:27)
[2021-10-16] MEDS: RISPERIDONE 1MG TABLET PO SCH ×2 (08:59→21:28)
[2021-10-16 09:01] LABS: BASOPHILS % 0.4 % (0.0-2.0); EOSINOPHILS % 1.8 % (0.0-5.0); HEMATOCRIT. 21.8 % (36.0-48.0); HEMOGLOBIN. 7.1 g/dL (12.0-16.0); LYMPHOCYTES % 10.5 % (20.0-50.0); MEAN CORPUSCULAR HEMOGLOBIN 27.3 pg (28.0-32.0); MEAN CORPUSCULAR VOLUME 83.2 fL (81.0-99.0); MEAN PLATELET VOLUME 8.1 fl (7.4-10.4); MONOCYTES % 11.8 % (2.0-8.0); NEUTROPHILS % 75.5 % (40.0-76.0); PLATELET 339 x1000/uL (130-400); RED BLOOD CELL COUNT 2.61 mill/uL (4.2-5.4); RED CELL DISTRIBUTION WIDTH 16.9 % (11.6-14.6)
[2021-10-16] MEDS: AMLODIPINE 5MG TABLET PO SCH (09:01)
[2021-10-16] MEDS: LIDOCAINE 5% PATCH TOP SCH (09:02)
[2021-10-16 09:12] LABS: CHLORIDE 101 mEq/L (98-107)
[2021-10-16 10:53] LABS: PHOSPHORUS 8.4 mg/dL (2.5-4.9)
[2021-10-16] MEDS: PANTOPRAZOLE SODIUM 40 MG/VIAL IV SCH (12:00)
[2021-10-16] MEDS ORDERED: LORAZEPAM 2MG/ML CPJ IV NR (13:15)
[2021-10-16] MEDS ORDERED: DIPHENHYDRAMINE 50MG/ML VIAL IV SCH (13:30)
[2021-10-17] VITALS: BP 101/45
[2021-10-17 04:00] VITALS: BP 81/48
[2021-10-17] MEDS: BLOOD SUGAR DIAGNOSTIC STRIP TEST SCH ×5 (04:33→20:30)
[2021-10-17] MEDS: HEPARIN 5000 UNITS/ML VIAL SUBCUT SCH ×2 (06:19→14:25)
[2021-10-17 08:00] VITALS: BP 112/60
[2021-10-17] MEDS: LIDOCAINE 5% PATCH TOP SCH (08:41)
[2021-10-17] MEDS: RISPERIDONE 1MG TABLET PO SCH ×2 (08:41→21:26)
[2021-10-17] MEDS: AMLODIPINE 5MG TABLET PO SCH (09:00)
[2021-10-17 11:48] LABS: BASOPHILS % 0.2 % (0.0-2.0); EOSINOPHILS % 1.9 % (0.0-5.0); HEMATOCRIT. 23.8 % (36.0-48.0); HEMOGLOBIN. 7.6 g/dL (12.0-16.0); LYMPHOCYTES % 9.7 % (20.0-50.0); MEAN CORPUSCULAR HEMOGLOBIN 26.7 pg (28.0-32.0); MEAN CORPUSCULAR VOLUME 83.2 fL (81.0-99.0); MEAN PLATELET VOLUME 8.1 fl (7.4-10.4); MONOCYTES % 10.4 % (2.0-8.0); NEUTROPHILS % 77.8 % (40.0-76.0); PLATELET 374 x1000/uL (130-400); RED BLOOD CELL COUNT 2.86 mill/uL (4.2-5.4)
[2021-10-17 11:56] LABS: CHLORIDE 100 mEq/L (98-107)
[2021-10-17 12:00] VITALS: BP 107/75
[2021-10-17 12:05] LABS: PHOSPHORUS 7.4 mg/dL (2.5-4.9)
[2021-10-17] MEDS: PANTOPRAZOLE SODIUM 40 MG/VIAL IV SCH (14:21)
[2021-10-17 15:53] VITALS: BP 115/65
[2021-10-17] MEDS: TRAMADOL 50MG TABLET PO PRN (18:12)
[2021-10-18] VITALS (11 sets, daily range): BP systolic 99–138; BP diastolic 53–87
[2021-10-18] MEDS: BLOOD SUGAR DIAGNOSTIC STRIP TEST SCH ×6 (00:10→20:35)
[2021-10-18] MEDS: TRAMADOL 50MG TABLET PO PRN ×3 (03:05→22:56)
[2021-10-18 07:00] LABS: MEAN CORPUSCULAR HEMOGLOBIN 26.1 pg (28.0-32.0); PLATELET 346 x1000/uL (130-400); RED BLOOD CELL COUNT 2.51 mill/uL (4.2-5.4)
[2021-10-18 07:41] LABS: HEMOGLOBIN. 6.6 g/dL (12.0-16.0)
[2021-10-18 07:42] LABS: HEMATOCRIT. 20.8 % (36.0-48.0)
[2021-10-18 07:59] LABS: CHLORIDE 103 mEq/L (98-107)
[2021-10-18] MEDS: LIDOCAINE 5% PATCH TOP SCH (09:00)
[2021-10-18] MEDS: RISPERIDONE 1MG TABLET PO SCH ×2 (09:31→20:35)
[2021-10-18] MEDS: AMLODIPINE 5MG TABLET PO SCH (09:31)
[2021-10-18] MEDS: PANTOPRAZOLE SODIUM 40 MG/VIAL IV SCH (12:00)
[2021-10-18] MEDS ORDERED: HEPARIN 5000 UNITS/ML VIAL SUBCUT SCH (16:34)
[2021-10-18 17:20] LABS: PLATELET ESTIMATE NORMAL
[2021-10-18] MEDS: EPOETIN ALFA-EPBX 4,000 UNIT/ML VIAL SUBCUT SCH (20:36)
[2021-10-18 21:47] LABS: HEMATOCRIT 24.8 % (36.0-48.0); HEMOGLOBIN 8.1 g/dL (12.0-16.0)
[2021-10-19] VITALS: BP 110/56
[2021-10-19 02:00] VITALS: BP 106/63
[2021-10-19 04:00] VITALS: BP 105/64
[2021-10-19] MEDS: BLOOD SUGAR DIAGNOSTIC STRIP TEST SCH ×7 (04:00→23:40)
[2021-10-19 07:02] LABS: HEMATOCRIT. 25.3 % (36.0-48.0); HEMOGLOBIN. 8.3 g/dL (12.0-16.0); MEAN CORPUSCULAR HEMOGLOBIN 26.9 pg (28.0-32.0); MEAN CORPUSCULAR VOLUME 82.3 fL (81.0-99.0); MEAN PLATELET VOLUME 7.9 fl (7.4-10.4); PLATELET 371 x1000/uL (130-400); RED BLOOD CELL COUNT 3.08 mill/uL (4.2-5.4); RED CELL DISTRIBUTION WIDTH 16.5 % (11.6-14.6)
[2021-10-19 08:01] LABS: PHOSPHORUS 6.7 mg/dL (2.5-4.9)
[2021-10-19] MEDS: AMLODIPINE 5MG TABLET PO SCH (09:00)
[2021-10-19] MEDS: LIDOCAINE 5% PATCH TOP SCH (09:00)
[2021-10-19] MEDS: RISPERIDONE 1MG TABLET PO SCH ×2 (09:00→19:55)
[2021-10-19 11:54] VITALS: BP 133/67
[2021-10-19] MEDS: PANTOPRAZOLE SODIUM 40 MG/VIAL IV SCH (12:49)
[2021-10-19 15:26] VITALS: BP 127/60
[2021-10-19 17:58] LABS: PLATELET ESTIMATE NORMAL
[2021-10-19] MEDS: TRAMADOL 50MG TABLET PO PRN (19:55)
[2021-10-19 20:00] VITALS: BP 131/52
[2021-10-19] MEDS: ACETAMINOPHEN 325MG TABLET PO PRN (21:18)
[2021-10-20] VITALS: BP 109/47
[2021-10-20] MEDS: BLOOD SUGAR DIAGNOSTIC STRIP TEST SCH (03:51)
[2021-10-20 04:00] VITALS: BP 126/53
[2021-10-20] MEDS: TRAMADOL 50MG TABLET PO PRN ×3 (05:38→21:24)
[2021-10-20 08:00] VITALS: BP 102/73
[2021-10-20] MEDS: AMLODIPINE 5MG TABLET PO SCH (09:00)
[2021-10-20] MEDS: RISPERIDONE 1MG TABLET PO SCH ×2 (09:04→21:16)
[2021-10-20] MEDS: LIDOCAINE 5% PATCH TOP SCH (09:08)
[2021-10-20] MEDS: ACETAMINOPHEN 325MG TABLET PO PRN (09:17)
[2021-10-20 10:07] LABS: HEMATOCRIT. 25.7 % (36.0-48.0); HEMOGLOBIN. 8.4 g/dL (12.0-16.0); MEAN CORPUSCULAR HEMOGLOBIN 27.3 pg (28.0-32.0); MEAN CORPUSCULAR VOLUME 83.4 fL (81.0-99.0); MEAN PLATELET VOLUME 7.6 fl (7.4-10.4); PLATELET 352 x1000/uL (130-400); RED BLOOD CELL COUNT 3.08 mill/uL (4.2-5.4); RED CELL DISTRIBUTION WIDTH 16.4 % (11.6-14.6)
[2021-10-20 10:14] LABS: CHLORIDE 106 mEq/L (98-107)
[2021-10-20 10:20] LABS: PHOSPHORUS 4.9 mg/dL (2.5-4.9)
[2021-10-20 12:00] VITALS: BP 93/52
[2021-10-20] MEDS: PANTOPRAZOLE SODIUM 40 MG/VIAL IV SCH (12:00)
[2021-10-20 17:14] LABS: PLATELET ESTIMATE NORMAL
[2021-10-20 20:00] VITALS: BP 139/64
[2021-10-20] MEDS: TRAZODONE HCL 50MG TABLET PO PRN (21:16)
[2021-10-20] MEDS: EPOETIN ALFA-EPBX 4,000 UNIT/ML VIAL SUBCUT SCH (21:18)
[2021-10-21] VITALS: BP 135/68
[2021-10-21 04:00] VITALS: BP 128/62
[2021-10-21 08:00] VITALS: BP 146/68
[2021-10-21 08:03] LABS: HEMATOCRIT. 25.5 % (36.0-48.0); HEMOGLOBIN. 8.4 g/dL (12.0-16.0); MEAN CORPUSCULAR HEMOGLOBIN 27.5 pg (28.0-32.0); MEAN CORPUSCULAR VOLUME 83.9 fL (81.0-99.0); MEAN PLATELET VOLUME 7.5 fl (7.4-10.4); PLATELET 378 x1000/uL (130-400); RED BLOOD CELL COUNT 3.05 mill/uL (4.2-5.4); RED CELL DISTRIBUTION WIDTH 16.5 % (11.6-14.6)
[2021-10-21 09:10] LABS: CHLORIDE 108 mEq/L (98-107)
[2021-10-21] MEDS: RISPERIDONE 1MG TABLET PO SCH ×2 (09:11→22:19)
[2021-10-21] MEDS: AMLODIPINE 5MG TABLET PO SCH (09:12)
[2021-10-21] MEDS: TRAMADOL 50MG TABLET PO PRN (09:12)
[2021-10-21] MEDS: LIDOCAINE 5% PATCH TOP SCH (09:13)
[2021-10-21 12:00] VITALS: BP 115/52
[2021-10-21] MEDS: PANTOPRAZOLE SODIUM 40 MG/VIAL IV SCH (13:03)
[2021-10-21 14:04] LABS: PLATELET ESTIMATE NORMAL
[2021-10-21 16:00] VITALS: BP 130/56
[2021-10-21 20:00] VITALS: BP 120/56
[2021-10-21] MEDS: ACETAMINOPHEN 325MG TABLET PO PRN (22:18)
[2021-10-22] VITALS: BP 129/66
[2021-10-22 04:00] VITALS: BP 125/64
[2021-10-22 07:20] LABS: HEMATOCRIT. 23.1 % (36.0-48.0); HEMOGLOBIN. 7.5 g/dL (12.0-16.0); MEAN CORPUSCULAR HEMOGLOBIN 26.9 pg (28.0-32.0); MEAN CORPUSCULAR VOLUME 82.7 fL (81.0-99.0); MEAN PLATELET VOLUME 7.5 fl (7.4-10.4); PLATELET 345 x1000/uL (130-400); RED BLOOD CELL COUNT 2.79 mill/uL (4.2-5.4); RED CELL DISTRIBUTION WIDTH 16.5 % (11.6-14.6)
[2021-10-22 07:31] LABS: CHLORIDE 110 mEq/L (98-107)
[2021-10-22 07:38] LABS: PHOSPHORUS 3.5 mg/dL (2.5-4.9)
[2021-10-22 08:00] VITALS: BP 145/68
[2021-10-22] MEDS: ACETAMINOPHEN 325MG TABLET PO PRN ×2 (08:59→20:25)
[2021-10-22] MEDS: RISPERIDONE 1MG TABLET PO SCH ×2 (09:00→20:25)
[2021-10-22] MEDS: AMLODIPINE 5MG TABLET PO SCH (09:00)
[2021-10-22] MEDS: LIDOCAINE 5% PATCH TOP SCH (09:00)
[2021-10-22 10:06] LABS: PLATELET ESTIMATE NORMAL
[2021-10-22 12:00] VITALS: BP 138/72
[2021-10-22] MEDS: PANTOPRAZOLE SODIUM 40 MG/VIAL IV SCH (13:04)
[2021-10-22 16:00] VITALS: BP 129/60
[2021-10-22 20:00] VITALS: BP 129/55
[2021-10-22] MEDS: EPOETIN ALFA-EPBX 4,000 UNIT/ML VIAL SUBCUT SCH (20:24)
[2021-10-23] VITALS: BP 139/80
[2021-10-23 04:00] VITALS: BP 118/70
[2021-10-23 08:00] VITALS: BP 142/55
[2021-10-23] MEDS: AMLODIPINE 5MG TABLET PO SCH (09:21)
[2021-10-23] MEDS: RISPERIDONE 1MG TABLET PO SCH ×2 (09:21→21:34)
[2021-10-23] MEDS: LIDOCAINE 5% PATCH TOP SCH (09:21)
[2021-10-23] MEDS: PANTOPRAZOLE SODIUM 40 MG/VIAL IV SCH (13:35)
[2021-10-23 13:40] VITALS: BP 138/71
[2021-10-23 16:00] VITALS: BP 135/74
[2021-10-23 20:00] VITALS: BP 142/63
[2021-10-23] MEDS: ACETAMINOPHEN 325MG TABLET PO PRN (21:34)
[2021-10-23] MEDS: TRAZODONE HCL 50MG TABLET PO PRN (21:35)
[2021-10-23] MEDS: TRAMADOL 50MG TABLET PO PRN (23:55)
[2021-10-24] VITALS: BP 122/53
[2021-10-24 04:00] VITALS: BP 138/81
[2021-10-24 07:55] LABS: HEMATOCRIT. 24.3 % (36.0-48.0); HEMOGLOBIN. 8.1 g/dL (12.0-16.0); MEAN CORPUSCULAR HEMOGLOBIN 27.6 pg (28.0-32.0); MEAN PLATELET VOLUME 7.3 fl (7.4-10.4); PLATELET 352 x1000/uL (130-400); RED BLOOD CELL COUNT 2.93 mill/uL (4.2-5.4); RED CELL DISTRIBUTION WIDTH 16.3 % (11.6-14.6)
[2021-10-24 08:00] VITALS: BP 164/91
[2021-10-24 08:00] LABS: PHOSPHORUS 3.4 mg/dL (2.5-4.9)
[2021-10-24] MEDS: LIDOCAINE 5% PATCH TOP SCH (09:00)
[2021-10-24] MEDS: RISPERIDONE 1MG TABLET PO SCH ×2 (09:52→21:32)
[2021-10-24 12:00] VITALS: BP 109/45
[2021-10-24] MEDS: PANTOPRAZOLE SODIUM 40 MG/VIAL IV SCH (12:13)
[2021-10-24] MEDS: TRAMADOL 50MG TABLET PO PRN ×3 (12:13→21:33)
[2021-10-24 13:36] LABS: PLATELET ESTIMATE NORMAL
[2021-10-24 16:00] VITALS: BP 117/59
[2021-10-24 20:30] VITALS: BP 143/59
[2021-10-25 04:00] VITALS: BP 128/47
[2021-10-25] MEDS: LIDOCAINE 5% PATCH TOP SCH (10:26)
[2021-10-25] MEDS: RISPERIDONE 1MG TABLET PO SCH ×2 (10:27→21:31)
[2021-10-25] MEDS: TRAMADOL 50MG TABLET PO PRN ×2 (10:27→21:32)
[2021-10-25 12:00] VITALS: BP 142/68
[2021-10-25 16:00] VITALS: BP 147/48
[2021-10-25 18:27] LABS: PHOSPHORUS 3.6 mg/dL (2.5-4.9)
[2021-10-25 20:00] VITALS: BP 156/75
[2021-10-26] VITALS: BP 123/64
[2021-10-26 00:16] LABS: HEMATOCRIT. 24.2 % (36.0-48.0); HEMOGLOBIN. 8.1 g/dL (12.0-16.0); MEAN CORPUSCULAR HEMOGLOBIN 27.8 pg (28.0-32.0); MEAN CORPUSCULAR VOLUME 83.4 fL (81.0-99.0); MEAN PLATELET VOLUME 7.1 fl (7.4-10.4); PLATELET 310 x1000/uL (130-400); RED BLOOD CELL COUNT 2.91 mill/uL (4.2-5.4); RED CELL DISTRIBUTION WIDTH 16.5 % (11.6-14.6)
[2021-10-26 03:07] LABS: ATYPICAL LYMPHOCYTES 1
[2021-10-26 03:08] LABS: PLATELET ESTIMATE NORMAL
[2021-10-26 04:00] VITALS: BP 135/75
[2021-10-26] MEDS: TRAMADOL 50MG TABLET PO PRN ×2 (05:18→23:43)
[2021-10-26 06:52] LABS: HEMATOCRIT. 25.1 % (36.0-48.0); HEMOGLOBIN. 8.3 g/dL (12.0-16.0); MEAN CORPUSCULAR HEMOGLOBIN 27.6 pg (28.0-32.0); MEAN CORPUSCULAR VOLUME 83.2 fL (81.0-99.0); MEAN PLATELET VOLUME 7.2 fl (7.4-10.4); PLATELET 322 x1000/uL (130-400); RED BLOOD CELL COUNT 3.01 mill/uL (4.2-5.4); RED CELL DISTRIBUTION WIDTH 16.7 % (11.6-14.6)
[2021-10-26 08:00] VITALS: BP 156/87
[2021-10-26] MEDS: RISPERIDONE 1MG TABLET PO SCH ×2 (09:23→21:21)
[2021-10-26] MEDS: LIDOCAINE 5% PATCH TOP SCH (09:24)
[2021-10-26 12:00] VITALS: BP 141/66
[2021-10-26 16:00] VITALS: BP 106/62
[2021-10-26 17:21] LABS: PLATELET ESTIMATE NORMAL
[2021-10-26 20:00] VITALS: BP 128/75
[2021-10-26] MEDS: TRAZODONE HCL 50MG TABLET PO PRN (21:22)
[2021-10-27] VITALS: BP 124/60
[2021-10-27 04:00] VITALS: BP 144/57
[2021-10-27 08:00] VITALS: BP 147/72
[2021-10-27] MEDS: LIDOCAINE 5% PATCH TOP SCH ×2 (09:26→09:35)
[2021-10-27] MEDS: RISPERIDONE 1MG TABLET PO SCH ×2 (09:26→21:11)
[2021-10-27] MEDS: TRAMADOL 50MG TABLET PO PRN ×2 (09:26→21:10)
[2021-10-27 12:00] VITALS: BP 139/60
[2021-10-27 16:00] VITALS: BP 141/74
[2021-10-27 20:00] VITALS: BP 141/67
[2021-10-28] VITALS: BP 127/60
[2021-10-28 04:00] VITALS: BP 121/47
[2021-10-28 08:00] VITALS: BP 133/60
[2021-10-28] MEDS: RISPERIDONE 1MG TABLET PO SCH ×2 (10:07→21:27)
[2021-10-28] MEDS: TRAMADOL 50MG TABLET PO PRN ×2 (10:11→21:27)
[2021-10-28 10:38] LABS: BASOPHILS % 0.3 % (0.0-2.0); EOSINOPHILS % 1.9 % (0.0-5.0); HEMATOCRIT. 25.4 % (36.0-48.0); HEMOGLOBIN. 8.2 g/dL (12.0-16.0); LYMPHOCYTES % 20.6 % (20.0-50.0); MEAN CORPUSCULAR HEMOGLOBIN 27.1 pg (28.0-32.0); MEAN CORPUSCULAR VOLUME 84.1 fL (81.0-99.0); MEAN PLATELET VOLUME 7.4 fl (7.4-10.4); NEUTROPHILS % 68.2 % (40.0-76.0); PLATELET 273 x1000/uL (130-400); RED BLOOD CELL COUNT 3.03 mill/uL (4.2-5.4); RED CELL DISTRIBUTION WIDTH 16.4 % (11.6-14.6)
[2021-10-28 10:53] LABS: PHOSPHORUS 3.3 mg/dL (2.5-4.9)
[2021-10-28 12:00] VITALS: BP 126/62
[2021-10-28 20:00] VITALS: BP 128/76
[2021-10-29] VITALS: BP 114/72
[2021-10-29] MEDS ORDERED: NALOXONE HCL 0.4 MG/ML 1ML VIAL IV PRN ×2 (02:45→03:00)
[2021-10-29 04:00] VITALS: BP 128/69
[2021-10-29] MEDS: TRAMADOL 50MG TABLET PO PRN ×2 (04:30→11:42)
[2021-10-29 08:00] VITALS: BP 126/71
[2021-10-29] MEDS: LIDOCAINE 5% PATCH TOP SCH (09:00)
[2021-10-29 09:59] LABS: BASOPHILS % 0.4 % (0.0-2.0); EOSINOPHILS % 1.9 % (0.0-5.0); HEMOGLOBIN. 8.1 g/dL (12.0-16.0); LYMPHOCYTES % 25.4 % (20.0-50.0); MEAN CORPUSCULAR HEMOGLOBIN 26.9 pg (28.0-32.0); MEAN CORPUSCULAR VOLUME 82.9 fL (81.0-99.0); MEAN PLATELET VOLUME 7.5 fl (7.4-10.4); MONOCYTES % 9.5 % (2.0-8.0); NEUTROPHILS % 62.8 % (40.0-76.0); PLATELET 266 x1000/uL (130-400); RED BLOOD CELL COUNT 3.02 mill/uL (4.2-5.4); RED CELL DISTRIBUTION WIDTH 16.8 % (11.6-14.6)
[2021-10-29] MEDS: RISPERIDONE 1MG TABLET PO SCH ×2 (10:08→21:44)
[2021-10-29 11:00] LABS: PHOSPHORUS 3.3 mg/dL (2.5-4.9)
[2021-10-29 12:00] VITALS: BP 138/58
[2021-10-29 16:00] VITALS: BP 127/64
[2021-10-29 20:00] VITALS: BP 137/56
[2021-10-30] VITALS: BP 126/80
[2021-10-30 02:56] VITALS: BP 126/80
[2021-10-30 04:00] VITALS: BP 135/74
[2021-10-30 07:33] LABS: BASOPHILS % 0.5 % (0.0-2.0); EOSINOPHILS % 2.3 % (0.0-5.0); HEMATOCRIT. 26.3 % (36.0-48.0); HEMOGLOBIN. 8.7 g/dL (12.0-16.0); LYMPHOCYTES % 26.7 % (20.0-50.0); MEAN CORPUSCULAR HEMOGLOBIN 27.4 pg (28.0-32.0); MEAN CORPUSCULAR VOLUME 83.2 fL (81.0-99.0); MEAN PLATELET VOLUME 7.6 fl (7.4-10.4); NEUTROPHILS % 58.5 % (40.0-76.0); PLATELET 256 x1000/uL (130-400); RED BLOOD CELL COUNT 3.17 mill/uL (4.2-5.4); RED CELL DISTRIBUTION WIDTH 17.2 % (11.6-14.6)
[2021-10-30 07:52] LABS: PHOSPHORUS 3.7 mg/dL (2.5-4.9)
[2021-10-30 08:00] VITALS: BP 151/83
[2021-10-30] MEDS: LIDOCAINE 5% PATCH TOP SCH (09:00)
[2021-10-30] MEDS: RISPERIDONE 1MG TABLET PO SCH ×2 (10:04→21:38)
[2021-10-30] MEDS: TRAZODONE HCL 50MG TABLET PO PRN (10:04)
[2021-10-30] MEDS: ACETAMINOPHEN 325MG TABLET PO PRN (16:44)
[2021-10-31 04:00] VITALS: BP 149/79
[2021-10-31] MEDS: ACETAMINOPHEN 325MG TABLET PO PRN ×2 (04:38→10:15)
[2021-10-31] MEDS: TRAZODONE HCL 50MG TABLET PO PRN (04:39)
[2021-10-31 08:00] VITALS: BP 151/80
[2021-10-31] MEDS: LIDOCAINE 5% PATCH TOP SCH ×2 (09:00→10:15)
[2021-10-31] MEDS: RISPERIDONE 1MG TABLET PO SCH ×2 (10:15→22:29)
[2021-10-31 10:21] LABS: BASOPHILS % 0.3 % (0.0-2.0); EOSINOPHILS % 2.3 % (0.0-5.0); HEMATOCRIT. 23.2 % (36.0-48.0); HEMOGLOBIN. 7.6 g/dL (12.0-16.0); MEAN CORPUSCULAR VOLUME 82.6 fL (81.0-99.0); MEAN PLATELET VOLUME 7.8 fl (7.4-10.4); MONOCYTES % 11.3 % (2.0-8.0); NEUTROPHILS % 58.1 % (40.0-76.0); PLATELET 247 x1000/uL (130-400); RED CELL DISTRIBUTION WIDTH 17.2 % (11.6-14.6)
[2021-10-31 12:00] VITALS: BP 143/72
[2021-10-31 16:00] VITALS: BP 155/59
[2021-10-31] MEDS: TRAMADOL 50MG TABLET PO PRN (22:29)
[2021-11-01] MEDS: RISPERIDONE 1MG TABLET PO SCH ×2 (09:17→21:44)
[2021-11-01] MEDS: CEFEPIME 1,000 MG in DEXTROSE 5% WATER 50 ML IV SCH ×2 (10:32→21:44)
[2021-11-01 12:00] VITALS: BP 142/74
[2021-11-01 16:00] VITALS: BP 130/68
[2021-11-01 20:00] VITALS: BP 133/64
[2021-11-01] MEDS: LINEZOLID 600 MG PREMIX 300 ML IV SCH (21:45)
[2021-11-01] MEDS: TRAZODONE HCL 50MG TABLET PO PRN (21:55)
[2021-11-01] MEDS: TRAMADOL 50MG TABLET PO PRN (21:56)
[2021-11-02] VITALS: BP 138/71
[2021-11-02] MEDS: TRAMADOL 50MG TABLET PO PRN (00:17)
[2021-11-02 04:00] VITALS: BP 131/65
[2021-11-02 07:19] LABS: BASOPHILS % 0.5 % (0.0-2.0); EOSINOPHILS % 2.5 % (0.0-5.0); HEMATOCRIT. 23.1 % (36.0-48.0); HEMOGLOBIN. 7.4 g/dL (12.0-16.0); LYMPHOCYTES % 30.9 % (20.0-50.0); MEAN CORPUSCULAR HEMOGLOBIN 26.6 pg (28.0-32.0); MEAN CORPUSCULAR VOLUME 83.5 fL (81.0-99.0); MEAN PLATELET VOLUME 7.6 fl (7.4-10.4); MONOCYTES % 13.5 % (2.0-8.0); NEUTROPHILS % 52.6 % (40.0-76.0); PLATELET 248 x1000/uL (130-400); RED BLOOD CELL COUNT 2.77 mill/uL (4.2-5.4); RED CELL DISTRIBUTION WIDTH 17.2 % (11.6-14.6)
[2021-11-02 08:00] VITALS: BP 158/71
[2021-11-02 08:01] LABS: PHOSPHORUS 3.4 mg/dL (2.5-4.9)
[2021-11-02] MEDS: LINEZOLID 600 MG PREMIX 300 ML IV SCH ×4 (09:23→23:39)
[2021-11-02] MEDS: RISPERIDONE 1MG TABLET PO SCH ×2 (09:23→20:51)
[2021-11-02 12:00] VITALS: BP 147/73
[2021-11-02 16:21] VITALS: BP 104/74
[2021-11-02 20:00] VITALS: BP 136/71
[2021-11-02] MEDS: FUROSEMIDE 40MG TABLET PO SCH (20:50)
[2021-11-03] VITALS: BP 156/81
[2021-11-03 04:00] VITALS: BP 149/73
[2021-11-03 08:00] VITALS: BP 150/52
[2021-11-03] MEDS: FUROSEMIDE 40MG TABLET PO SCH (08:51)
[2021-11-03] MEDS: TRAMADOL 50MG TABLET PO PRN ×2 (08:51→21:29)
[2021-11-03] MEDS: RISPERIDONE 1MG TABLET PO SCH ×2 (08:51→21:28)
[2021-11-03 12:00] VITALS: BP 145/58
[2021-11-03] MEDS ORDERED: LIDOCAINE HCL 1% 20ML VIAL (Pyxis) INJ ONE (13:35)
[2021-11-03 16:00] VITALS: BP 136/64
[2021-11-03] MEDS: LINEZOLID 600 MG PREMIX 300 ML IV SCH (16:18)
[2021-11-03 16:33] LABS: BASOPHILS % 0.5 % (0.0-2.0); EOSINOPHILS % 2.9 % (0.0-5.0); LYMPHOCYTES % 28.1 % (20.0-50.0); MEAN CORPUSCULAR HEMOGLOBIN 27.7 pg (28.0-32.0); MEAN CORPUSCULAR VOLUME 82.3 fL (81.0-99.0); MEAN PLATELET VOLUME 7.8 fl (7.4-10.4); MONOCYTES % 13.3 % (2.0-8.0); NEUTROPHILS % 55.2 % (40.0-76.0); PLATELET 248 x1000/uL (130-400); RED BLOOD CELL COUNT 2.51 mill/uL (4.2-5.4); RED CELL DISTRIBUTION WIDTH 17.3 % (11.6-14.6)
[2021-11-03 16:41] LABS: HEMATOCRIT. 20.7 % (36.0-48.0)
[2021-11-03 17:24] LABS: PHOSPHORUS 3.5 mg/dL (2.5-4.9)
[2021-11-03 20:35] VITALS: BP 144/58
[2021-11-03] MEDS: TRAZODONE HCL 50MG TABLET PO PRN (21:29)
[2021-11-04] VITALS: BP 127/83
[2021-11-04] MEDS: AMPICILLIN 2,000 MG in SODIUM CHLORIDE 0.9% 100 ML IV SCH ×4 (00:10→17:22)
[2021-11-04] MEDS: TRAMADOL 50MG TABLET PO PRN ×3 (03:59→21:57)
[2021-11-04 08:00] VITALS: BP 129/50
[2021-11-04] MEDS: FUROSEMIDE 40MG TABLET PO SCH (08:41)
[2021-11-04] MEDS: RISPERIDONE 1MG TABLET PO SCH ×2 (08:41→21:47)
[2021-11-04 09:19] LABS: BASOPHILS % 0.7 % (0.0-2.0); EOSINOPHILS % 3.8 % (0.0-5.0); HEMATOCRIT. 21.5 % (36.0-48.0); HEMOGLOBIN. 7.3 g/dL (12.0-16.0); LYMPHOCYTES % 34.6 % (20.0-50.0); MEAN CORPUSCULAR VOLUME 82.3 fL (81.0-99.0); MEAN PLATELET VOLUME 7.4 fl (7.4-10.4); MONOCYTES % 13.8 % (2.0-8.0); NEUTROPHILS % 47.1 % (40.0-76.0); PLATELET 239 x1000/uL (130-400); RED BLOOD CELL COUNT 2.62 mill/uL (4.2-5.4); RED CELL DISTRIBUTION WIDTH 16.9 % (11.6-14.6)
[2021-11-04 12:00] VITALS: BP 134/55
[2021-11-04 16:00] VITALS: BP 126/68
[2021-11-04] MEDS: GABAPENTIN 300MG CAPSULE PO PRN ×2 (17:22→23:22)
[2021-11-04 20:00] VITALS: BP 125/50
[2021-11-04] MEDS: TRAZODONE HCL 50MG TABLET PO PRN ×2 (21:47→23:25)
[2021-11-05] VITALS (9 sets, daily range): BP systolic 99–137; BP diastolic 42–63
[2021-11-05] MEDS: AMPICILLIN 2,000 MG in SODIUM CHLORIDE 0.9% 100 ML IV SCH ×4 (00:17→18:41)
[2021-11-05 07:33] LABS: BASOPHILS % 0.6 % (0.0-2.0); EOSINOPHILS % 4.9 % (0.0-5.0); LYMPHOCYTES % 33.2 % (20.0-50.0); MEAN CORPUSCULAR HEMOGLOBIN 26.7 pg (28.0-32.0); MEAN CORPUSCULAR VOLUME 82.4 fL (81.0-99.0); MEAN PLATELET VOLUME 7.6 fl (7.4-10.4); MONOCYTES % 14.7 % (2.0-8.0); NEUTROPHILS % 46.6 % (40.0-76.0); PLATELET 272 x1000/uL (130-400); RED BLOOD CELL COUNT 2.55 mill/uL (4.2-5.4); RED CELL DISTRIBUTION WIDTH 16.9 % (11.6-14.6)
[2021-11-05 07:53] LABS: HEMOGLOBIN. 6.8 g/dL (12.0-16.0)
[2021-11-05] MEDS: GABAPENTIN 300MG CAPSULE PO PRN ×3 (08:44→20:48)
[2021-11-05] MEDS: FUROSEMIDE 40MG TABLET PO SCH (08:44)
[2021-11-05] MEDS: RISPERIDONE 1MG TABLET PO SCH ×2 (08:44→20:48)
[2021-11-05] MEDS: TRAMADOL 50MG TABLET PO PRN ×2 (11:44→17:43)
[2021-11-05 15:36] LABS: HEMATOCRIT 23.9 % (36.0-48.0); HEMOGLOBIN 7.8 g/dL (12.0-16.0)
[2021-11-05 15:44] LABS: INR 1.1; PROTHROMBIN TIME 11.4 sec (9.6-11.0)
[2021-11-06] VITALS: BP 110/70
[2021-11-06] MEDS: AMPICILLIN 2,000 MG in SODIUM CHLORIDE 0.9% 100 ML IV SCH ×5 (00:24→23:59)
[2021-11-06 04:00] VITALS: BP 127/75
[2021-11-06] MEDS: TRAMADOL 50MG TABLET PO PRN ×3 (05:18→21:06)
[2021-11-06 08:00] VITALS: BP 122/74
[2021-11-06] MEDS: GABAPENTIN 300MG CAPSULE PO PRN ×2 (09:25→17:00)
[2021-11-06] MEDS: FUROSEMIDE 40MG TABLET PO SCH (09:25)
[2021-11-06] MEDS: RISPERIDONE 1MG TABLET PO SCH ×2 (09:25→21:05)
[2021-11-06 12:00] VITALS: BP 105/58
[2021-11-06 16:00] VITALS: BP 118/62
[2021-11-07] VITALS: BP 127/67
[2021-11-07] MEDS: GABAPENTIN 300MG CAPSULE PO PRN ×3 (00:10→17:00)
[2021-11-07] MEDS: AMPICILLIN 2,000 MG in SODIUM CHLORIDE 0.9% 100 ML IV SCH ×3 (05:15→17:00)
[2021-11-07] MEDS: TRAMADOL 50MG TABLET PO PRN ×2 (05:17→14:08)
[2021-11-07 07:00] LABS: BASOPHILS % 0.5 % (0.0-2.0); EOSINOPHILS % 6.6 % (0.0-5.0); HEMATOCRIT. 22.4 % (36.0-48.0); HEMOGLOBIN. 7.4 g/dL (12.0-16.0); LYMPHOCYTES % 33.2 % (20.0-50.0); MEAN CORPUSCULAR VOLUME 82.4 fL (81.0-99.0); MEAN PLATELET VOLUME 7.6 fl (7.4-10.4); MONOCYTES % 12.8 % (2.0-8.0); NEUTROPHILS % 46.9 % (40.0-76.0); PLATELET 240 x1000/uL (130-400); RED BLOOD CELL COUNT 2.72 mill/uL (4.2-5.4); RED CELL DISTRIBUTION WIDTH 16.8 % (11.6-14.6)
[2021-11-07 07:14] LABS: CHLORIDE 107 mEq/L (98-107)
[2021-11-07 08:00] VITALS: BP 116/50
[2021-11-07] MEDS: FUROSEMIDE 40MG TABLET PO SCH (08:41)
[2021-11-07] MEDS: RISPERIDONE 1MG TABLET PO SCH ×2 (08:41→21:28)
[2021-11-07 12:00] VITALS: BP 117/45
[2021-11-07 16:00] VITALS: BP 128/54
[2021-11-07 20:00] VITALS: BP 133/92
[2021-11-07] MEDS: TRAZODONE HCL 50MG TABLET PO PRN (21:28)
[2021-11-08] VITALS: BP 130/89
[2021-11-08] MEDS: AMPICILLIN 2,000 MG in SODIUM CHLORIDE 0.9% 100 ML IV SCH ×5 (00:52→23:54)
[2021-11-08] MEDS: GABAPENTIN 300MG CAPSULE PO PRN ×2 (00:52→20:04)
[2021-11-08 04:00] VITALS: BP 110/55
[2021-11-08 08:00] VITALS: BP 142/62
[2021-11-08] MEDS: FUROSEMIDE 40MG TABLET PO SCH (08:44)
[2021-11-08] MEDS: TRAMADOL 50MG TABLET PO PRN ×3 (08:44→23:57)
[2021-11-08 10:09] LABS: BASOPHILS % 0.5 % (0.0-2.0); EOSINOPHILS % 7.5 % (0.0-5.0); HEMATOCRIT. 22.4 % (36.0-48.0); HEMOGLOBIN. 7.3 g/dL (12.0-16.0); LYMPHOCYTES % 34.2 % (20.0-50.0); MEAN CORPUSCULAR HEMOGLOBIN 27.1 pg (28.0-32.0); MEAN CORPUSCULAR VOLUME 82.8 fL (81.0-99.0); MEAN PLATELET VOLUME 7.5 fl (7.4-10.4); MONOCYTES % 10.9 % (2.0-8.0); NEUTROPHILS % 46.9 % (40.0-76.0); PLATELET 262 x1000/uL (130-400); RED BLOOD CELL COUNT 2.71 mill/uL (4.2-5.4)
[2021-11-08 10:16] LABS: CHLORIDE 109 mEq/L (98-107)
[2021-11-08 12:00] VITALS: BP 151/59
[2021-11-08 16:00] VITALS: BP 184/70
[2021-11-08 16:30] VITALS: BP 137/64
[2021-11-08] MEDS: TRAZODONE HCL 50MG TABLET PO PRN (20:04)
[2021-11-08] MEDS ORDERED: NALOXONE HCL 0.4MG/ML VIAL IV PRN (22:15)
[2021-11-09] VITALS: BP 159/65
[2021-11-09] MEDS: GABAPENTIN 300MG CAPSULE PO PRN ×4 (02:05→23:10)
[2021-11-09] MEDS: AMPICILLIN 2,000 MG in SODIUM CHLORIDE 0.9% 100 ML IV SCH ×4 (06:27→23:10)
[2021-11-09] MEDS: TRAMADOL 50MG TABLET PO PRN ×3 (06:48→20:27)
[2021-11-09 07:35] LABS: BASOPHILS % 0.7 % (0.0-2.0); HEMATOCRIT. 22.3 % (36.0-48.0); HEMOGLOBIN. 7.4 g/dL (12.0-16.0); LYMPHOCYTES % 35.5 % (20.0-50.0); MEAN CORPUSCULAR HEMOGLOBIN 27.4 pg (28.0-32.0); MEAN CORPUSCULAR VOLUME 82.2 fL (81.0-99.0); MEAN PLATELET VOLUME 7.6 fl (7.4-10.4); MONOCYTES % 13.8 % (2.0-8.0); PLATELET 279 x1000/uL (130-400); RED BLOOD CELL COUNT 2.72 mill/uL (4.2-5.4); RED CELL DISTRIBUTION WIDTH 16.7 % (11.6-14.6)
[2021-11-09 07:37] LABS: CHLORIDE 110 mEq/L (98-107)
[2021-11-09 07:43] LABS: PHOSPHORUS 3.3 mg/dL (2.5-4.9)
[2021-11-09 08:00] VITALS: BP 125/65
[2021-11-09] MEDS: FUROSEMIDE 40MG TABLET PO SCH (09:24)
[2021-11-09 12:00] VITALS: BP 142/58
[2021-11-09 16:00] VITALS: BP 131/79
[2021-11-09 20:00] VITALS: BP 149/78
[2021-11-09] MEDS: RISPERIDONE 0.5MG TABLET PO SCH (20:27)
[2021-11-10] VITALS: BP 124/54
[2021-11-10 04:00] VITALS: BP 116/52
[2021-11-10] MEDS: AMPICILLIN 2,000 MG in SODIUM CHLORIDE 0.9% 100 ML IV SCH ×3 (05:21→17:26)
[2021-11-10] MEDS: TRAMADOL 50MG TABLET PO PRN ×2 (05:53→12:23)
[2021-11-10 08:42] VITALS: BP 115/54
[2021-11-10] MEDS: FUROSEMIDE 40MG TABLET PO SCH (08:42)
[2021-11-10] MEDS: RISPERIDONE 0.5MG TABLET PO SCH ×2 (08:42→22:01)
[2021-11-10] MEDS: GABAPENTIN 300MG CAPSULE PO PRN ×2 (08:43→17:26)
[2021-11-10 12:00] VITALS: BP 127/51
[2021-11-10 16:00] VITALS: BP 115/54
[2021-11-10 20:00] VITALS: BP 129/65
[2021-11-10] MEDS: TRAZODONE HCL 50MG TABLET PO PRN (22:01)
[2021-11-10] MEDS: ACETAMINOPHEN 325MG TABLET PO PRN (22:03)
[2021-11-11] VITALS: BP 148/59
[2021-11-11] MEDS: AMPICILLIN 2,000 MG in SODIUM CHLORIDE 0.9% 100 ML IV SCH ×4 (01:13→17:42)
[2021-11-11 04:00] VITALS: BP 152/69
[2021-11-11 08:00] VITALS: BP 138/56
[2021-11-11] MEDS: GABAPENTIN 300MG CAPSULE PO PRN ×3 (08:32→21:38)
[2021-11-11] MEDS: RISPERIDONE 0.5MG TABLET PO SCH ×2 (08:32→21:35)
[2021-11-11] MEDS: FUROSEMIDE 40MG TABLET PO SCH (08:32)
[2021-11-11] MEDS: ACETAMINOPHEN 325MG TABLET PO PRN ×2 (08:33→17:42)
[2021-11-11 11:52] LABS: CHLORIDE 106 mEq/L (98-107)
[2021-11-11 11:59] LABS: PHOSPHORUS 3.8 mg/dL (2.5-4.9)
[2021-11-11 12:00] VITALS: BP 141/55
[2021-11-11 12:05] LABS: BASOPHILS % 0.5 % (0.0-2.0); HEMATOCRIT. 23.6 % (36.0-48.0); HEMOGLOBIN. 7.6 g/dL (12.0-16.0); LYMPHOCYTES % 29.7 % (20.0-50.0); MEAN CORPUSCULAR HEMOGLOBIN 26.6 pg (28.0-32.0); MEAN CORPUSCULAR VOLUME 82.8 fL (81.0-99.0); MEAN PLATELET VOLUME 7.8 fl (7.4-10.4); MONOCYTES % 11.1 % (2.0-8.0); NEUTROPHILS % 48.7 % (40.0-76.0); PLATELET 317 x1000/uL (130-400); RED BLOOD CELL COUNT 2.86 mill/uL (4.2-5.4)
[2021-11-11] MEDS: DIPHENHYDRAMINE 25MG CAPSULE PO PRN (12:25)
[2021-11-11 16:00] VITALS: BP 137/55
[2021-11-11 20:00] VITALS: BP 142/59
[2021-11-11] MEDS: TRAZODONE HCL 50MG TABLET PO PRN (21:35)
[2021-11-12 00:30] VITALS: BP 140/52
[2021-11-12 04:00] VITALS: BP 138/51
[2021-11-12] MEDS: DIPHENHYDRAMINE 25MG CAPSULE PO PRN ×3 (05:26→21:07)
[2021-11-12] MEDS: GABAPENTIN 300MG CAPSULE PO PRN ×3 (05:26→21:07)
[2021-11-12] MEDS: ACETAMINOPHEN 325MG TABLET PO PRN ×3 (05:26→21:15)
[2021-11-12] MEDS: AMPICILLIN 2,000 MG in SODIUM CHLORIDE 0.9% 100 ML IV SCH ×5 (06:23→20:49)
[2021-11-12] MEDS: FUROSEMIDE 40MG TABLET PO SCH (09:00)
[2021-11-12] MEDS: RISPERIDONE 0.5MG TABLET PO SCH ×2 (10:01→21:07)
[2021-11-12 12:00] VITALS: BP 161/91
[2021-11-12 16:00] VITALS: BP 145/87
[2021-11-12 20:00] VITALS: BP 175/76
[2021-11-12] MEDS: TRAZODONE HCL 50MG TABLET PO PRN (21:07)
[2021-11-13] VITALS: BP 151/86
[2021-11-13 04:00] VITALS: BP 173/75
[2021-11-13] MEDS: AMPICILLIN 2,000 MG in SODIUM CHLORIDE 0.9% 100 ML IV SCH ×5 (06:02→17:35)
[2021-11-13] MEDS: DIPHENHYDRAMINE 25MG CAPSULE PO PRN (06:03)
[2021-11-13] MEDS: GABAPENTIN 300MG CAPSULE PO PRN ×3 (06:03→17:42)
[2021-11-13] MEDS: ACETAMINOPHEN 325MG TABLET PO PRN ×3 (06:04→17:42)
[2021-11-13 08:00] VITALS: BP 176/68
[2021-11-13] MEDS: FUROSEMIDE 40MG TABLET PO SCH (08:39)
[2021-11-13] MEDS: RISPERIDONE 0.5MG TABLET PO SCH ×2 (08:39→20:46)
[2021-11-13 09:11] LABS: BASOPHILS % 0.7 % (0.0-2.0); EOSINOPHILS % 7.1 % (0.0-5.0); HEMATOCRIT. 23.1 % (36.0-48.0); HEMOGLOBIN. 7.8 g/dL (12.0-16.0); LYMPHOCYTES % 30.3 % (20.0-50.0); MEAN CORPUSCULAR HEMOGLOBIN 27.8 pg (28.0-32.0); MEAN CORPUSCULAR VOLUME 82.2 fL (81.0-99.0); MEAN PLATELET VOLUME 7.5 fl (7.4-10.4); MONOCYTES % 9.1 % (2.0-8.0); NEUTROPHILS % 52.8 % (40.0-76.0); PLATELET 331 x1000/uL (130-400); RED BLOOD CELL COUNT 2.81 mill/uL (4.2-5.4); RED CELL DISTRIBUTION WIDTH 17.3 % (11.6-14.6)
[2021-11-13 09:18] LABS: CHLORIDE 110 mEq/L (98-107)
[2021-11-13 09:23] LABS: PHOSPHORUS 3.3 mg/dL (2.5-4.9)
[2021-11-13 12:00] VITALS: BP 175/139
[2021-11-13 16:00] VITALS: BP 181/77
[2021-11-13] MEDS: TRAZODONE HCL 50MG TABLET PO PRN (23:29)
[2021-11-14] VITALS: BP 158/74
[2021-11-14] MEDS: AMPICILLIN 2,000 MG in SODIUM CHLORIDE 0.9% 100 ML IV SCH ×5 (01:11→23:52)
[2021-11-14] MEDS: GABAPENTIN 300MG CAPSULE PO PRN ×3 (01:11→18:54)
[2021-11-14 08:00] VITALS: BP 152/65
[2021-11-14] MEDS: FUROSEMIDE 40MG TABLET PO SCH (09:54)
[2021-11-14] MEDS: RISPERIDONE 0.5MG TABLET PO SCH ×2 (09:54→20:33)
[2021-11-14 12:00] VITALS: BP 184/78
[2021-11-14] MEDS ORDERED: LORAZEPAM 2MG/ML CPJ IM PRN (18:30)
[2021-11-14] MEDS ORDERED: HALOPERIDOL LACTATE 5MG/ML VIAL IM NR (18:30)
[2021-11-14] MEDS ORDERED: FLUCONAZOLE 150MG TABLET PO NR (19:30)
[2021-11-14 20:00] VITALS: BP 152/77
[2021-11-14] MEDS: TRAZODONE HCL 50MG TABLET PO PRN (20:33)
[2021-11-14] MEDS: CLOTRIMAZOLE 1% CREAM 15GM TOP SCH (21:32)
[2021-11-15] VITALS: BP 151/80
[2021-11-15] MEDS: GABAPENTIN 300MG CAPSULE PO PRN ×2 (05:49→15:26)
[2021-11-15] MEDS: AMPICILLIN 2,000 MG in SODIUM CHLORIDE 0.9% 100 ML IV SCH ×3 (05:50→17:56)
[2021-11-15] MEDS: FUROSEMIDE 40MG TABLET PO SCH (09:34)
[2021-11-15] MEDS: LOSARTAN POTASSIUM 25 MG TABLET PO SCH (09:34)
[2021-11-15] MEDS: RISPERIDONE 0.5MG TABLET PO SCH ×2 (09:34→20:06)
[2021-11-15] MEDS: AMLODIPINE 5MG TABLET PO SCH ×2 (09:34→20:23)
[2021-11-15] MEDS: CLOTRIMAZOLE 1% CREAM 15GM TOP SCH ×2 (09:35→17:56)
[2021-11-15 12:00] VITALS: BP 142/74
[2021-11-15 16:00] VITALS: BP 131/52
[2021-11-15 20:00] VITALS: BP 164/71
[2021-11-15] MEDS: TRAZODONE HCL 50MG TABLET PO PRN (20:06)
[2021-11-15] MEDS: ACETAMINOPHEN 325MG TABLET PO PRN (20:12)
[2021-11-16] VITALS: BP 131/68
[2021-11-16] MEDS: AMPICILLIN 2,000 MG in SODIUM CHLORIDE 0.9% 100 ML IV SCH ×4 (00:34→17:54)
[2021-11-16] MEDS: GABAPENTIN 300MG CAPSULE PO PRN ×4 (02:02→21:46)
[2021-11-16 04:00] VITALS: BP 130/66
[2021-11-16] MEDS: ACETAMINOPHEN 325MG TABLET PO PRN ×2 (06:21→17:26)
[2021-11-16 08:00] VITALS: BP 142/68
[2021-11-16 08:20] LABS: BASOPHILS % 0.7 % (0.0-2.0); EOSINOPHILS % 7.8 % (0.0-5.0); HEMATOCRIT. 29.9 % (36.0-48.0); HEMOGLOBIN. 9.4 g/dL (12.0-16.0); LYMPHOCYTES % 31.7 % (20.0-50.0); MEAN CORPUSCULAR HEMOGLOBIN 26.1 pg (28.0-32.0); MEAN CORPUSCULAR VOLUME 82.7 fL (81.0-99.0); MEAN PLATELET VOLUME 7.6 fl (7.4-10.4); MONOCYTES % 9.7 % (2.0-8.0); NEUTROPHILS % 50.1 % (40.0-76.0); PLATELET 309 x1000/uL (130-400); RED BLOOD CELL COUNT 3.61 mill/uL (4.2-5.4); RED CELL DISTRIBUTION WIDTH 17.6 % (11.6-14.6)
[2021-11-16 08:26] LABS: CHLORIDE 108 mEq/L (98-107)
[2021-11-16] MEDS: FUROSEMIDE 40MG TABLET PO SCH (08:54)
[2021-11-16] MEDS: LOSARTAN POTASSIUM 25 MG TABLET PO SCH (08:54)
[2021-11-16] MEDS: RISPERIDONE 0.5MG TABLET PO SCH (08:54)
[2021-11-16] MEDS: CLOTRIMAZOLE 1% CREAM 15GM TOP SCH ×2 (08:55→17:00)
[2021-11-16] MEDS: AMLODIPINE 5MG TABLET PO SCH ×2 (08:55→21:00)
[2021-11-16 12:00] VITALS: BP 137/77
[2021-11-16 16:00] VITALS: BP 170/64
[2021-11-16] MEDS: QUETIAPINE FUMARATE 50MG TABLET PO SCH ×2 (17:57→21:45)
[2021-11-16] MEDS: LAMOTRIGINE 25MG TABLET PO SCH (17:57)
[2021-11-16] MEDS: TRAMADOL 50MG TABLET PO PRN (17:57)
[2021-11-16] MEDS ORDERED: LORAZEPAM 2MG/ML CPJ IV PRN (18:45)
[2021-11-16] MEDS ORDERED: NALOXONE HCL 0.4MG/ML VIAL IV PRN (19:45)
[2021-11-16 20:00] VITALS: BP 105/53
[2021-11-17] MEDS: AMPICILLIN 2,000 MG in SODIUM CHLORIDE 0.9% 100 ML IV SCH ×3 (01:01→18:23)
[2021-11-17 08:00] VITALS: BP 127/67
[2021-11-17] MEDS: TRAMADOL 50MG TABLET PO PRN ×2 (10:13→18:22)
[2021-11-17] MEDS: QUETIAPINE FUMARATE 50MG TABLET PO SCH ×2 (10:13→21:19)
[2021-11-17] MEDS: LAMOTRIGINE 25MG TABLET PO SCH ×2 (10:14→18:23)
[2021-11-17] MEDS: FUROSEMIDE 40MG TABLET PO SCH (10:14)
[2021-11-17] MEDS: AMLODIPINE 5MG TABLET PO SCH ×2 (10:14→21:20)
[2021-11-17] MEDS: CLOTRIMAZOLE 1% CREAM 15GM TOP SCH ×2 (10:15→18:22)
[2021-11-17] MEDS: LOSARTAN POTASSIUM 25 MG TABLET PO SCH (10:25)
[2021-11-17 12:00] VITALS: BP 123/55
[2021-11-17] MEDS: GABAPENTIN 300MG CAPSULE PO PRN ×2 (15:14→21:19)
[2021-11-17 16:00] VITALS: BP 129/62
[2021-11-17 20:00] VITALS: BP 127/58
[2021-11-18] VITALS: BP 102/44
[2021-11-18] MEDS: AMPICILLIN 2,000 MG in SODIUM CHLORIDE 0.9% 100 ML IV SCH ×4 (00:27→17:15)
[2021-11-18 04:00] VITALS: BP 95/48
[2021-11-18] MEDS: GABAPENTIN 300MG CAPSULE PO PRN ×3 (04:24→22:32)
[2021-11-18 06:21] LABS: BASOPHILS % 0.7 % (0.0-2.0); EOSINOPHILS % 7.6 % (0.0-5.0); HEMATOCRIT. 21.9 % (36.0-48.0); HEMOGLOBIN. 7.3 g/dL (12.0-16.0); LYMPHOCYTES % 33.7 % (20.0-50.0); MEAN CORPUSCULAR HEMOGLOBIN 27.3 pg (28.0-32.0); MEAN PLATELET VOLUME 7.5 fl (7.4-10.4); MONOCYTES % 10.1 % (2.0-8.0); NEUTROPHILS % 47.9 % (40.0-76.0); PLATELET 319 x1000/uL (130-400); RED BLOOD CELL COUNT 2.67 mill/uL (4.2-5.4); RED CELL DISTRIBUTION WIDTH 17.6 % (11.6-14.6)
[2021-11-18 06:25] LABS: CHLORIDE 111 mEq/L (98-107)
[2021-11-18 08:00] VITALS: BP 110/58
[2021-11-18] MEDS ORDERED: POTASSIUM CHLORIDE 20MEQ TABLET SR PO NR (09:00)
[2021-11-18] MEDS: FUROSEMIDE 40MG TABLET PO SCH (10:26)
[2021-11-18] MEDS: QUETIAPINE FUMARATE 50MG TABLET PO SCH ×2 (10:26→22:32)
[2021-11-18] MEDS: AMLODIPINE 5MG TABLET PO SCH ×2 (10:26→21:00)
[2021-11-18] MEDS: LAMOTRIGINE 25MG TABLET PO SCH ×2 (10:27→17:15)
[2021-11-18] MEDS: LOSARTAN POTASSIUM 25 MG TABLET PO SCH (10:27)
[2021-11-18] MEDS: CLOTRIMAZOLE 1% CREAM 15GM TOP SCH ×2 (10:31→17:15)
[2021-11-18 12:00] VITALS: BP 126/65
[2021-11-18 20:00] VITALS: BP 119/55
[2021-11-18 22:00] VITALS: BP 119/55
[2021-11-19] VITALS: BP 120/61
[2021-11-19 04:00] VITALS: BP 110/65
[2021-11-19 07:10] LABS: BASOPHILS % 0.4 % (0.0-2.0); EOSINOPHILS % 6.5 % (0.0-5.0); HEMATOCRIT. 24.5 % (36.0-48.0); LYMPHOCYTES % 32.2 % (20.0-50.0); MEAN CORPUSCULAR HEMOGLOBIN 27.1 pg (28.0-32.0); MEAN CORPUSCULAR VOLUME 83.5 fL (81.0-99.0); MEAN PLATELET VOLUME 7.8 fl (7.4-10.4); MONOCYTES % 11.9 % (2.0-8.0); PLATELET 350 x1000/uL (130-400); RED BLOOD CELL COUNT 2.94 mill/uL (4.2-5.4); RED CELL DISTRIBUTION WIDTH 17.5 % (11.6-14.6)
[2021-11-19 07:21] LABS: CHLORIDE 109 mEq/L (98-107)
[2021-11-19] MEDS: LAMOTRIGINE 25MG TABLET PO SCH ×2 (09:05→16:32)
[2021-11-19] MEDS: QUETIAPINE FUMARATE 50MG TABLET PO SCH ×2 (09:05→20:47)
[2021-11-19] MEDS: AMLODIPINE 5MG TABLET PO SCH ×2 (09:05→20:47)
[2021-11-19] MEDS: LOSARTAN POTASSIUM 25 MG TABLET PO SCH (09:06)
[2021-11-19] MEDS: FUROSEMIDE 40MG TABLET PO SCH (09:06)
[2021-11-19] MEDS: CLOTRIMAZOLE 1% CREAM 15GM TOP SCH ×2 (09:13→16:36)
[2021-11-19 12:00] VITALS: BP 133/70
[2021-11-19 16:00] VITALS: BP 138/81
[2021-11-19 20:00] VITALS: BP 131/61
[2021-11-19] MEDS: TRAMADOL 50MG TABLET PO PRN (20:46)
[2021-11-20 04:00] VITALS: BP 127/73
[2021-11-20] MEDS: TRAMADOL 50MG TABLET PO PRN (05:43)
[2021-11-20 08:00] VITALS: BP 130/75
[2021-11-20] MEDS: CLOTRIMAZOLE 1% CREAM 15GM TOP SCH ×2 (09:00→17:00)
[2021-11-20] MEDS: QUETIAPINE FUMARATE 50MG TABLET PO SCH ×2 (11:20→21:59)
[2021-11-20] MEDS: LAMOTRIGINE 25MG TABLET PO SCH ×2 (11:21→17:00)
[2021-11-20] MEDS: GABAPENTIN 300MG CAPSULE PO PRN ×2 (11:21→21:59)
[2021-11-20] MEDS: AMLODIPINE 5MG TABLET PO SCH ×2 (11:21→21:00)
[2021-11-20] MEDS: FUROSEMIDE 40MG TABLET PO SCH (11:22)
[2021-11-20] MEDS: LOSARTAN POTASSIUM 25 MG TABLET PO SCH (11:22)
[2021-11-20 16:00] VITALS: BP 129/65
[2021-11-20 20:00] VITALS: BP 104/52
[2021-11-21] VITALS: BP 106/54
[2021-11-21 04:20] VITALS: BP 110/52
[2021-11-21] MEDS: TRAMADOL 50MG TABLET PO PRN (04:56)
[2021-11-21 08:00] VITALS: BP 128/82
[2021-11-21] MEDS: FUROSEMIDE 40MG TABLET PO SCH (09:01)
[2021-11-21] MEDS: LAMOTRIGINE 25MG TABLET PO SCH ×2 (09:01→18:15)
[2021-11-21] MEDS: QUETIAPINE FUMARATE 50MG TABLET PO SCH ×2 (09:01→20:20)
[2021-11-21] MEDS: LOSARTAN POTASSIUM 25 MG TABLET PO SCH (09:01)
[2021-11-21] MEDS: AMLODIPINE 5MG TABLET PO SCH ×2 (09:04→20:19)
[2021-11-21] MEDS: CLOTRIMAZOLE 1% CREAM 15GM TOP SCH ×2 (09:07→18:15)
[2021-11-21 12:00] VITALS: BP 134/67
[2021-11-21] MEDS: GABAPENTIN 300MG CAPSULE PO PRN (18:23)
[2021-11-21 20:00] VITALS: BP 130/64
[2021-11-22] VITALS: BP 116/65
[2021-11-22 04:00] VITALS: BP 132/64
[2021-11-22] MEDS: GABAPENTIN 300MG CAPSULE PO PRN ×2 (06:06→17:44)
[2021-11-22 08:00] VITALS: BP 131/56
[2021-11-22] MEDS: AMLODIPINE 5MG TABLET PO SCH ×2 (10:17→21:25)
[2021-11-22] MEDS: LAMOTRIGINE 25MG TABLET PO SCH ×2 (10:17→17:44)
[2021-11-22] MEDS: LOSARTAN POTASSIUM 25 MG TABLET PO SCH (10:17)
[2021-11-22] MEDS: QUETIAPINE FUMARATE 50MG TABLET PO SCH ×2 (10:17→21:25)
[2021-11-22] MEDS: FUROSEMIDE 40MG TABLET PO SCH (10:17)
[2021-11-22 12:00] VITALS: BP 129/51
[2021-11-22 16:00] VITALS: BP 112/56
[2021-11-22 20:00] VITALS: BP 126/68
[2021-11-23] MEDS: GABAPENTIN 300MG CAPSULE PO PRN ×3 (02:49→17:04)
[2021-11-23] MEDS: DIPHENHYDRAMINE 25MG CAPSULE PO PRN (02:49)
[2021-11-23 04:00] VITALS: BP 136/70
[2021-11-23 08:00] VITALS: BP 145/88
[2021-11-23] MEDS: QUETIAPINE FUMARATE 50MG TABLET PO SCH ×2 (08:52→22:17)
[2021-11-23] MEDS: AMLODIPINE 5MG TABLET PO SCH ×2 (08:52→22:17)
[2021-11-23] MEDS: LOSARTAN POTASSIUM 25 MG TABLET PO SCH (08:53)
[2021-11-23] MEDS: LAMOTRIGINE 25MG TABLET PO SCH ×2 (08:53→17:00)
[2021-11-23] MEDS: FUROSEMIDE 40MG TABLET PO SCH (08:53)
[2021-11-23 12:00] VITALS: BP 105/49
[2021-11-23 16:00] VITALS: BP 125/65
[2021-11-23 20:00] VITALS: BP 114/53
[2021-11-24] VITALS: BP 125/48
[2021-11-24] MEDS: DIPHENHYDRAMINE 25MG CAPSULE PO PRN (03:29)
[2021-11-24] MEDS: GABAPENTIN 300MG CAPSULE PO PRN ×2 (03:29→16:40)
[2021-11-24 04:00] VITALS: BP 143/60
[2021-11-24 08:00] VITALS: BP 145/58
[2021-11-24] MEDS: QUETIAPINE FUMARATE 50MG TABLET PO SCH ×2 (09:04→20:10)
[2021-11-24] MEDS: LOSARTAN POTASSIUM 25 MG TABLET PO SCH (09:04)
[2021-11-24] MEDS: FUROSEMIDE 40MG TABLET PO SCH (09:04)
[2021-11-24] MEDS: LAMOTRIGINE 25MG TABLET PO SCH ×2 (09:04→16:40)
[2021-11-24] MEDS: AMLODIPINE 5MG TABLET PO SCH ×2 (09:05→20:16)
[2021-11-24 16:00] VITALS: BP 116/40
[2021-11-24 20:00] VITALS: BP 124/72
[2021-11-25] VITALS: BP 120/70
[2021-11-25 04:00] VITALS: BP 138/74
[2021-11-25 08:00] VITALS: BP 146/52
[2021-11-25] MEDS: GABAPENTIN 300MG CAPSULE PO PRN (09:56)
[2021-11-25] MEDS: LOSARTAN POTASSIUM 25 MG TABLET PO SCH (09:56)
[2021-11-25] MEDS: AMLODIPINE 5MG TABLET PO SCH (09:56)
[2021-11-25] MEDS: FUROSEMIDE 40MG TABLET PO SCH (09:56)
[2021-11-25] MEDS: QUETIAPINE FUMARATE 50MG TABLET PO SCH (09:57)
[2021-11-25] MEDS: LAMOTRIGINE 25MG TABLET PO SCH ×2 (09:57→17:32)
[2021-11-25 12:00] VITALS: BP 127/71
[2021-11-25 16:00] VITALS: BP 126/75
[2021-11-25] MEDS ORDERED: B25 PO (17:06)
[2021-11-25] MEDS ORDERED: GABA-532 PO (17:06)
[2021-11-25] MEDS ORDERED: FURO40TA5 PO (17:06)
[2021-11-25] MEDS ORDERED: LAM25 PO (17:06)
[2021-11-25] MEDS ORDERED: AMLO5TAB88 PO (17:06)
[2021-11-25] MEDS ORDERED: LOSA25TA3 PO (17:06)
[2021-11-25] MEDS ORDERED: QUET50TA PO (17:06)
[2021-11-25 17:56] VITALS: BP 126/75
== END 2021-11-25 20:39 | disposition home or self-care (01) | DRG 817 ==
LOC: ER 13:46 → EDBEDREQSVC 21:41 → EDBEDREQTM 21:41 → MICUSO 09-26 03:40 → 5EST 09-28 22:47 → 8WST 10-19 10:44 → 6EST 10-25 09:41
PROVIDERS: ADMIT Family Medicine Adult Medicine; ATTEND Family Medicine Adult Medicine
PROC: 02HV33Z Insertion of Infusion Device into Superior Vena Cava, Percutaneous Approach (ICD-10-PCS; principal; 2021-09-27)
PROC: B548ZZA Ultrasonography of Superior Vena Cava, Guidance (ICD-10-PCS; 2021-09-27)
PROC: 02HV33Z Insertion of Infusion Device into Superior Vena Cava, Percutaneous Approach (ICD-10-PCS; 2021-09-30)
PROC: B548ZZA Ultrasonography of Superior Vena Cava, Guidance (ICD-10-PCS; 2021-09-30)
PROC: 5A1D70Z Performance of Urinary Filtration, Intermittent, Less than 6 Hours Per Day (ICD-10-PCS; 2021-09-30)
PROC: 5A1D70Z Performance of Urinary Filtration, Intermittent, Less than 6 Hours Per Day (ICD-10-PCS; 2021-10-02)
PROC: 5A1D70Z Performance of Urinary Filtration, Intermittent, Less than 6 Hours Per Day (ICD-10-PCS; 2021-10-04)
PROC: 30233N1 Transfusion of Nonautologous Red Blood Cells into Peripheral Vein, Percutaneous Approach (ICD-10-PCS; 2021-10-05)
PROC: 5A1D70Z Performance of Urinary Filtration, Intermittent, Less than 6 Hours Per Day (ICD-10-PCS; 2021-10-06)
PROC: 5A1D70Z Performance of Urinary Filtration, Intermittent, Less than 6 Hours Per Day (ICD-10-PCS; 2021-10-08)
PROC: 5A1D70Z Performance of Urinary Filtration, Intermittent, Less than 6 Hours Per Day (ICD-10-PCS; 2021-10-10)
PROC: 5A1D70Z Performance of Urinary Filtration, Intermittent, Less than 6 Hours Per Day (ICD-10-PCS; 2021-10-12)
PROC: 5A1D70Z Performance of Urinary Filtration, Intermittent, Less than 6 Hours Per Day (ICD-10-PCS; 2021-10-14)
PROC: 5A1D70Z Performance of Urinary Filtration, Intermittent, Less than 6 Hours Per Day (ICD-10-PCS; 2021-10-16)
PROC: 5A1D70Z Performance of Urinary Filtration, Intermittent, Less than 6 Hours Per Day (ICD-10-PCS; 2021-10-19)
PROC: 5A1D70Z Performance of Urinary Filtration, Intermittent, Less than 6 Hours Per Day (ICD-10-PCS; 2021-10-21)
PROC: 5A1D70Z Performance of Urinary Filtration, Intermittent, Less than 6 Hours Per Day (ICD-10-PCS; 2021-10-23)
PROC: 5A1D70Z Performance of Urinary Filtration, Intermittent, Less than 6 Hours Per Day (ICD-10-PCS; 2021-10-26)
PROC: 5A1D70Z Performance of Urinary Filtration, Intermittent, Less than 6 Hours Per Day (ICD-10-PCS; 2021-10-30)
PROC: 02HV33Z Insertion of Infusion Device into Superior Vena Cava, Percutaneous Approach (ICD-10-PCS; 2021-11-03)
PROC: B548ZZA Ultrasonography of Superior Vena Cava, Guidance (ICD-10-PCS; 2021-11-03)
PROC: B5181ZA Fluoroscopy of Superior Vena Cava using Low Osmolar Contrast, Guidance (ICD-10-PCS; 2021-11-03)
PROC: 0D9670Z Drainage of Stomach with Drainage Device, Via Natural or Artificial Opening (ICD-10-PCS; 2021-11-05)
DX: T47.0X2A Poisoning by histamine H2-receptor blockers, intentional self-harm, initial encounter (principal); A41.81 Sepsis due to Enterococcus; K72.00 Acute and subacute hepatic failure without coma; G92.8 Other toxic encephalopathy; E43 Unspecified severe protein-calorie malnutrition; K56.609 Unspecified intestinal obstruction, unspecified as to partial versus complete obstruction; E72.20 Disorder of urea cycle metabolism, unspecified; E87.2 Acidosis; I12.0 Hypertensive chronic kidney disease with stage 5 chronic kidney disease or end stage renal disease; N18.6 End stage renal disease; L03.116 Cellulitis of left lower limb; N17.9 Acute kidney failure, unspecified; Z20.822 Contact with and (suspected) exposure to COVID-19; K71.9 Toxic liver disease, unspecified; M62.82 Rhabdomyolysis; E83.39 Other disorders of phosphorus metabolism; E87.1 Hypo-osmolality and hyponatremia; T39.312A Poisoning by propionic acid derivatives, intentional self-harm, initial encounter; D50.9 Iron deficiency anemia, unspecified; E16.2 Hypoglycemia, unspecified; E87.5 Hyperkalemia; E87.70 Fluid overload, unspecified; F14.129 Cocaine abuse with intoxication, unspecified; F20.9 Schizophrenia, unspecified; K80.20 Calculus of gallbladder without cholecystitis without obstruction; N39.0 Urinary tract infection, site not specified; R74.01 Elevation of levels of liver transaminase levels; E83.42 Hypomagnesemia; E87.6 Hypokalemia; F15.10 Other stimulant abuse, uncomplicated; F31.30 Bipolar disorder, current episode depressed, mild or moderate severity, unspecified; F43.10 Post-traumatic stress disorder, unspecified; L01.00 Impetigo, unspecified; Z72.89 Other problems related to lifestyle; Z82.49 Family history of ischemic heart disease and other diseases of the circulatory system; Z98.891 History of uterine scar from previous surgery; Z91.51 Personal history of suicidal behavior; Y92.89 Other specified places as the place of occurrence of the external cause; Z68.43 Body mass index [BMI] 50.0-59.9, adult; E83.51 Hypocalcemia; R65.20 Severe sepsis without septic shock
CPT/HCPCS: 36415; 36600; 71045; 73590; 73620; 74018; 74250; 76705; 76770; 76937; 80048; 80053; 80076; 80305; 80307; 80320; 80329; 81003; 81025; 82140; 82248; 82270; 82375; 82550; 82805; 82962; 83605; 83735; 84100; 85014; 85018; 85025; 85044; 85049; 85384; 86705; 86706; 86709; 86803; 86850; 86900; 86920; 87077; 87186; 87340; 87426; 93005; 93306; 97116; 97162; 97530; 99285; A6261; C1725; C1752; C1769; C1887; C1893; C9113; J0132; J0290; J0610; J0692; J0696; J0780; J0885; J1630; J1644; J2020; J2060; J2405; J2543; J3370; J3475; J3490; J7030; J7040; J7042; J7050; J7060; J7070; J7131; P9016; Q0163; Q9963; U0003; U0005; A4315; G0480